=== PATIENT | female | born 1940 | race Caucasian/White ===

== ENCOUNTER 2017-09-24 23:27 | Inpatient (IN) | payer MEDICARE ==
[~2017-09-24] VITALS: Ht 157.5 cm; Wt 70.6 kg
--- NOTE | 2017-09-24 23:57 | PHYS DOC ---
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 This pain is been around the level of her ribs. She has been more short of breath. She's very constipated some laxatives last night had very small menstrual period but no vomiting. No known fever. No recent travel. She has a chronic cough which the son states hasn't really changed. No rash. No urinary complaints. She is noncompliant with her home oxygen. She does continue to smoke tobacco. She's very noncompliant and has not seen a doctor since last year which she was seen at . She has some right lower rib pain. Review of Systems Review of Systems Constitutional: Denies fever or chills Eyes: Denies change in visual acuity, redness, or eye pain HENT: Denies nasal congestion or sore throat Respiratory: POS cough and shortness of breath Cardiovascular: Right chest pain GI: POS abdominal pain, nausea, vomiting, bloody stools or diarrhea : Denies dysuria or hematuria Musculoskeletal: Denies back pain or joint pain Integument: Denies rash or skin lesions Neurologic: Denies headache, focal weakness or sensory changes All other systems were reviewed and found to be within normal limits, except as documented in this note. Current Medications Current Medications Current Medications Medications (Trade) Dose Ordered Sig/Edith Start Time Stop Time Status Last Admin Dose Admin Fentanyl Citrate (Fentanyl 2ml Vial) 50 mcg PRN Q1HR PRN 09/25/17 03:30 09/26/17 03:29 Info (Do NOT chart on this entry -- for MONITORING) 1 each PRN DAILY PRN 09/25/17 01:45 09/27/17 01:44 Iohexol (Omnipaque 300 Mg/ml) 75 ml 1X ONCE 09/25/17 01:45 09/25/17 01:46 DC 09/25/17 01:41 75 ML Morphine Sulfate 2 mg PRN Q2HR PRN 09/25/17 03:30 09/26/17 03:29 Ondansetron HCl (Zofran) 4 mg PRN Q8HRS PRN 09/25/17 03:30 09/26/17 03:29 Sodium Chloride 1,000 ml @ 1,000 mls/hr 1X ONCE 09/25/17 01:30 09/25/17 02:29 DC 09/25/17 01:25 1,000 MLS/HR Allergies Allergies Allergies Coded Allergies Type Severity Reaction Last Updated Verified rice Allergy Unknown 09/25/17 Yes Physical Exam Physical Exam Constitutional: Well developed, well nourished, no acute distress, non-toxic appearance. Heavy tobacco smell on clothing HENT: Normocephalic, atraumatic, bilateral external ears normal, oropharynx moist, no oral exudates, nose normal. Eyes: PERRLA, EOMI, conjunctiva normal, no discharge. Neck: Normal range of motion, no tenderness, supple, no stridor. Cardiovascular:Heart rate regular rhythm, no murmur Lungs & Thorax: Bilateral breath sounds clear to auscultation; coarse diminished breath sounds. Abdomen: Bowel sounds normal, soft, POS tenderness upper abdomen; no rebound or guarding, no masses, no pulsatile masses. Skin: Warm, dry, no erythema, no rash. Back: No tenderness, no CVA tenderness. Extremities: No tenderness, no cyanosis, no clubbing, ROM intact, no edema. Neurologic: Alert and oriented X 3, normal motor function, normal sensory function, no focal deficits noted. Psychologic: Affect normal, judgement normal, mood normal. Current Patient Data Vital Signs Vital Signs Date Time Temp Pulse Resp B/P (MAP) Pulse Ox O2 Delivery O2 Flow Rate FiO2 09/25/17 01:36 20 09/25/17 00:10 97.7 86 152/79 (103) 87 Room Air 97.7 Lab Values Laboratory Tests Test 09/24/17 23:55 09/25/17 00:01 White Blood Count 8.6 x10^3/uL (4.0-11.0) Red Blood Count 4.99 x10^6/uL (3.50-5.40) Hemoglobin 15.8 g/dL (12.0-15.5) H Hematocrit 47.1 % (36.0-47.0) H Mean Corpuscular Volume 94 fL (79-100) Mean Corpuscular Hemoglobin 32 pg (25-35) Mean Corpuscular Hemoglobin Concent 34 g/dL (31-37) Red Cell Distribution Width 15.0 % (11.5-14.5) H Platelet Count 354 x10^3/uL (140-400) Neutrophils (%) (Auto) 65 % (31-73) Lymphocytes (%) (Auto) 21 % (24-48) L Monocytes (%) (Auto) 9 % (0-9) Eosinophils (%) (Auto) 4 % (0-3) H Basophils (%) (Auto) 1 % (0-3) Neutrophils # (Auto) 5.6 x10^3uL (1.8-7.7) Lymphocytes # (Auto) 1.8 x10^3/uL (1.0-4.8) Monocytes # (Auto) 0.8 x10^3/uL (0.0-1.1) Eosinophils # (Auto) 0.3 x10^3/uL (0.0-0.7) Basophils # (Auto) 0.1 x10^3/uL (0.0-0.2) Sodium Level 139 mmol/L (136-145) Potassium Level 3.9 mmol/L (3.5-5.1) Chloride Level 101 mmol/L (98-107) Carbon Dioxide Level 28 mmol/L (21-32) Anion Gap 10 (6-14) Blood Urea Nitrogen 20 mg/dL (7-20) Creatinine 0.9 mg/dL (0.6-1.0) Estimated GFR (Cockcroft-Gault) 61.2 BUN/Creatinine Ratio 22 (6-20) H Glucose Level 108 mg/dL (70-99) H Calcium Level 9.4 mg/dL (8.5-10.1) Total Bilirubin 0.3 mg/dL (0.2-1.0) Aspartate Amino Transferase (AST) 19 U/L (15-37) Alanine Aminotransferase (ALT) 15 U/L (14-59) Alkaline Phosphatase 84 U/L (46-116) Creatine Kinase 91 U/L (26-192) Creatine Kinase MB (Mass) 1.2 ng/mL (0.0-3.6) Creatine Kinase MB Relative Index 1.3 % (0-4) Troponin I Quantitative < 0.017 ng/mL (0.000-0.055) Total Protein 8.9 g/dL (6.4-8.2) H Albumin 3.4 g/dL (3.4-5.0) Albumin/Globulin Ratio 0.6 (1.0-1.7) L Lipase 170 U/L (73-393) D-Dimer (Dilia) 1.23 ug/mlFEU (0.00-0.50) H Laboratory Tests 09/24/17 23:55 Laboratory Tests 09/24/17 23:55 EKG EKG EKG interpreted by myself at 0017 am: normal sinus rhythm rate 76, non specific ST changes. Radiology/Procedures Radiology/Procedures CXR interpreted by myself at 0030 am: Chronic COPD changes. Multiple granulomas noted. By basilar atelectasis but right is increased with infiltrate versus scarring versus lesion. prior chest x-ray to compare this to from 2002 with atelectasis noted RLL. [facility] [address] [place] [address] IMAGING REPORT Signed PATIENT: BARTOLO MADISON ACCOUNT: [id number] : 1940 LOCATION: ER AGE: 77 SEX: F EXAM STATUS: REG ER ORD. PHYSICIAN: PANCHO BOONE MD REASON: ELEV D DIMER/ soa; RIB PAIN; R/O PE PROCEDURE: CT ABD PELV W/ IV CONTRST ONLY CT angiogram of the chest with contrast: Reason for examination: Shortness of breath with elevated d-dimer. Bloating and abdominal pain. Helical images were obtained through the chest with intravenous administration of 75 cc Omnipaque 300 using pulmonary embolus protocol. 3-D MIPS reconstruction was performed in sagittal and coronal planes. The trachea and mainstem bronchi show no intraluminal lesions. No abnormality seen at the esophagus. There is a small hiatal hernia present. The thoracic aorta shows some mild mural plaque and calcification. No aneurysmal dilatation or dissection is evident. The heart appears to be enlarged with no pericardial effusion evident. There is no evidence of pulmonary embolus. The lung andrews show no consolidated infiltrates, pleural effusions or pneumothorax. There is suggestion however of some mild groundglass infiltrates suggesting some pulmonary edema. There are degenerative changes in the spine with a thoracic scoliosis. No acute bony abnormalities are seen. IMPRESSION: Small hiatal hernia. No evidence of pulmonary embolus. Cardiomegaly. Mild groundglass infiltrates suggesting pulmonary edema. CT abdomen and pelvis with contrast: Helical images were obtained through the abdomen and pelvis with intravenous administration of contrast. Reconstruction was performed in sagittal and coronal planes. The liver appears to be homogeneous. Gallbladder, spleen, adrenal glands and pancreas show no acute abnormalities. There is arteriosclerotic calcification in the aorta and some mural plaque. No abnormality seen at the inferior vena cava. No abnormality seen at the appendix. The colon shows no diverticulosis or diverticulitis. The small intestinal tract is not abnormally dilated and there is no evidence of bowel obstruction. The kidneys show no renal masses, renal calculi, hydronephrosis or evidence of obstructive uropathy. No abnormality seen at the bladder or vaginal cuff. There are some degenerative changes in the spine but no acute bony abnormalities are seen. IMPRESSION: Small hiatal hernia. No acute abnormality seen in the abdomen or pelvis. Exposure: One or more of the following individualized dose reduction techniques were utilized for this examination: 1. Automated exposure control 2. Adjustment of the mA and/or kV according to patient size 3. Use of iterative reconstruction technique. Electronically signed by: Ernesto Finch MD (09/25/2017 3:05 AM) [facility] DICTATED and SIGNED BY: ERNESTO FINCH MD DATE: 09/25/17252 CC: PANCHO BOONE MD; NO PCP ~ Course & Med Decision Making Course & Med Decision Making Evaluated patient when she was brought back to the room. She has multiple medical complaints and medical noncompliance. She clearly appears to be dyspneic although has COPD and continues to smoke and is noncompliant with her oxygen use at home. Son is in the room and took me aside and states that she is very stubborn and doesn't like to seek medical care. Will proceed with evaluation given her IV fentanyl for the pain. At 0120 AM: D-dimer is elevated a right lower lobe does show atelectasis versus infiltrate versus lesion. We'll CT her anterior chest and abdomen- pelvis as well, as her pain is in the area of lower chest and upper abdomen. Her liver enzymes however are normal.Explained above to the patient she is agreeable with the plan. At 0310 AM: CT results back: no PE. Patient still with pain with unclear etiology. Will admit; NPO and have re-evaluation in am. Admit to Dr Nunez. My differential for abdominal pain includes but is not limited to appendicitis; cholelithiasis or cholecystitis; renal stones; ureterolithiasis; pancreatitis; urinary tract infection; bowel obstruction; irritable bowel. I have spoken with the patient and/or caregivers. I have explained the patient' s condition, diagnosis and treatment plan based on the information available to me at this time. I have answered the patient's and/or caregiver's questions and addressed any concerns. The patient and/or caregivers have as good an understanding of the patient's diagnosis, condition and treatment plan as can be expected at this point. The patient has been stabilized within the capability of the emergency department. The patient will be transported for further care and management or will be moved to an observation or inpatient service. I have communicated with the staff or medical practitioner taking over this patient's care. I have assessed this patient clinically and believe that their condition requires admission to the hospital. After consulting the admitting physician about this case, they have asked that I admit this patient to their service as an inpatient based on the clinical presentation and my impression. Dragon Disclaimer Dragon Disclaimer This electronic medical record was generated, in whole or in part, using a voice recognition dictation system. Departure Departure Impression: Primary Impression: Abdominal pain Additional Impressions: Dyspnea Chest pain Disposition: ADMITTED INPATIENT Admitting Physician: Cristal Nunez Condition: STABLE Referrals: NO PCP (PCP) Problem Qualifiers Primary Impression: Abdominal pain Abdominal location: right upper quadrant Qualified Codes: R10.11 - Right upper quadrant pain Additional Impressions: Dyspnea Dyspnea type: shortness of breath Qualified Codes: R06.02 - Shortness of breath Chest pain Chest pain type: chest pain on breathing Qualified Codes: R07.1 - Chest pain on breathing PANCHO BOONE MD Sep 24, 2017 23:57
[2017-09-25] MEDS ORDERED: ONDANSETRON PF 4 MG/2 ML VIAL. IV ONE
[2017-09-25] MEDS ORDERED: IV NORMAL SALINE 1000ML BAG 1,000 ML IV SCH
[2017-09-25 00:10] LABS: BASO # 0.1 x10^3/uL (0.0-0.2); BASO % 1 % (0-3); EOS % 4 % (0-3); HEMATOCRIT 47.1 % (36.0-47.0); HEMOGLOBIN 15.8 g/dL (12.0-15.5); LYMPH # 1.8 x10^3/uL (1.0-4.8); LYMPH % 21 % (24-48); MEAN CORPUSCULAR HEMOGLOBIN 32 pg (25-35); MEAN CORPUSCULAR HGB CONC 34 g/dL (31-37); MEAN CORPUSCULAR VOLUME 94 fL (79-100); MONO % 9 % (0-9); NEUT % 65 % (31-73); PLATELET COUNT 354 x10^3/uL (140-400); RED BLOOD COUNT 4.99 x10^6/uL (3.50-5.40); WHITE BLOOD COUNT 8.6 x10^3/uL (4.0-11.0)
[2017-09-25 00:21] LABS: CALCIUM 9.4 mg/dL (8.5-10.1); CREATININE 0.9 mg/dL (0.6-1.0); GFR 61.2; POTASSIUM 3.9 mmol/L (3.5-5.1)
[2017-09-25 00:27] LABS: ALBUMIN 3.4 g/dL (3.4-5.0); ALBUMIN/GLOBULIN RATIO 0.6 (1.0-1.7); TOTAL BILIRUBIN 0.3 mg/dL (0.2-1.0); TOTAL PROTEIN 8.9 g/dL (6.4-8.2)
[2017-09-25 00:35] LABS: CKMB MASS 1.2 ng/mL (0.0-3.6)
[2017-09-25] MEDS ORDERED: IV NORMAL SALINE 1000ML BAG 1,000 ML IV ONE (01:30)
[2017-09-25] MEDS ORDERED: fentaNYL PF VIAL 100 MCG/2 ML VIAL IV ONE ×2 (01:30)
[2017-09-25] MEDS ORDERED: IOHEXOL 300 MG/ML 100ML VIAL. IV ONE (01:45)
[2017-09-25] MEDS ORDERED: CONTRAST GIVEN MC PRN (01:45)
--- NOTE | 2017-09-25 03:09 | RAD ---
CT angiogram of the chest with contrast: Reason for examination: Shortness of breath with elevated d-dimer. Bloating and abdominal pain. Helical images were obtained through the chest with intravenous administration of 75 cc Omnipaque 300 using pulmonary embolus protocol. 3-D MIPS reconstruction was performed in sagittal and coronal planes. The trachea and mainstem bronchi show no intraluminal lesions. No abnormality seen at the esophagus. There is a small hiatal hernia present. The thoracic aorta shows some mild mural plaque and calcification. No aneurysmal dilatation or dissection is evident. The heart appears to be enlarged with no pericardial effusion evident. There is no evidence of pulmonary embolus. The lung andrews show no consolidated infiltrates, pleural effusions or pneumothorax. There is suggestion however of some mild groundglass infiltrates suggesting some pulmonary edema. There are degenerative changes in the spine with a thoracic scoliosis. No acute bony abnormalities are seen. IMPRESSION: Small hiatal hernia. No evidence of pulmonary embolus. Cardiomegaly. Mild groundglass infiltrates suggesting pulmonary edema. CT abdomen and pelvis with contrast: Helical images were obtained through the abdomen and pelvis with intravenous administration of contrast. Reconstruction was performed in sagittal and coronal planes. The liver appears to be homogeneous. Gallbladder, spleen, adrenal glands and pancreas show no acute abnormalities. There is arteriosclerotic calcification in the aorta and some mural plaque. No abnormality seen at the inferior vena cava. No abnormality seen at the appendix. The colon shows no diverticulosis or diverticulitis. The small intestinal tract is not abnormally dilated and there is no evidence of bowel obstruction. The kidneys show no renal masses, renal calculi, hydronephrosis or evidence of obstructive uropathy. No abnormality seen at the bladder or vaginal cuff. There are some degenerative changes in the spine but no acute bony abnormalities are seen. IMPRESSION: Small hiatal hernia. No acute abnormality seen in the abdomen or pelvis. Exposure: One or more of the following individualized dose reduction techniques were utilized for this examination: 1. Automated exposure control 2. Adjustment of the mA and/or kV according to patient size 3. Use of iterative reconstruction technique. Electronically signed by: Tiffanie Nielson MD (09/25/2017 3:05 AM) [facility]
[2017-09-25] MEDS ORDERED: ONDANSETRON PF 4 MG/2 ML VIAL. IV PRN (03:30)
[2017-09-25] MEDS ORDERED: MORPHINE SULFATE 4 MG/ML DISP.SYRIN. IV PRN (03:30)
[2017-09-25] MEDS: fentaNYL PF VIAL 100 MCG/2 ML VIAL IV PRN ×2 (05:35→21:02)
--- NOTE | 2017-09-25 06:19 | EKG ---
[facility] [address] [place] [address] Test Date: 2017-09-25 Test Time: 00:17:32 Pat Name: BARTOLO MADSION Department: Room: 574 1 Gender: F Structural [employer]: : 1940 Requested By: PANCHO BOONE Order Number: [id number] Reading MD: Ambrocio Ernst Measurements Intervals Narvon Rate: 76 P: RI: QRS: 10 QRSD: 110 T: 118 QT: 384 QTc: 436 Interpretive Statements SINUS RHYTHM BASELINE ARTIFACT T ABNORMALITY IN ANTERIOR LEADS INFEROLATERAL LEADS ABNORMAL ECG Electronically Signed On 10-07-2017 14:00:17 CAMP ATTENDANT by Ambrocio Ernst
[2017-09-25] MEDS ORDERED: LEVO25TA4 PO (06:22)
[2017-09-25 07:00] VITALS: BP 121/58
--- NOTE | 2017-09-25 07:33 | RAD ---
EXAM: Chest one view. HISTORY: Chest pain with deep breathing. COMPARISON: 08/20/2006. FINDINGS: A frontal view of the chest is obtained. There are limitations from rotation to the left. Opacities in the right greater than left base may represent scarring or atelectasis. Hyperinflation is consistent with chronic obstructive pulmonary disease. There is no pneumothorax or pleural effusion. The heart is moderately enlarged. There are atherosclerotic calcifications of the aorta. There is a mild broad thoracic dextroscoliosis. IMPRESSION: 1. Chronic obstructive pulmonary disease with bibasilar atelectasis or scarring. 2. Moderate cardiomegaly.
[2017-09-25 11:00] VITALS: BP 123/59
[2017-09-25 15:00] VITALS: BP 113/55
--- NOTE | 2017-09-25 17:04 | PDOC1 ---
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 This pain is been around the level of her ribs. She has been more short of breath. She's very constipated some laxatives last night had very small menstrual period but no vomiting. No known fever. No recent travel. She has a chronic cough which the son states hasn't really changed. No rash. No urinary complaints. She is noncompliant with her home oxygen. She does continue to smoke tobacco. She's very noncompliant and has not seen a doctor since last year which she was seen at . She has some right lower rib pain. Past Medical History Past Medical History COPD Pulmonary: Bronchitis, COPD Psych: Anxiety Family History Family History DENIES FHX COLON CANCER Social History Smoke: 2 packs per day ALCOHOL: none Drugs: None Current Problem List Problem List Problems Medical Problems: (1) Abdominal pain Status: Acute (2) Chest pain Status: Acute (3) Dyspnea Status: Acute Problems: Current Medications Current Medications Current Medications Sodium Chloride 1,000 ml @ 1,000 mls/hr Q1H IV ; Start 09/25/17 at 00:00; Stop 09/25/17 at 00:59; Status DC Fentanyl Citrate (Fentanyl 2ml Vial) 25 mcg 1X ONCE IV Last administered on 00:32; Start 09/25/17 at 00:00; Stop 09/25/17 at 00:13; Status DC Ondansetron HCl (Zofran) 4 mg 1X ONCE IV ; Start 09/25/17 at 00:00; Stop at 00:13; Status DC Sodium Chloride 1,000 ml @ 1,000 mls/hr 1X ONCE IV Last administered on 09/25 01:25; Start 09/25/17 at 01:30; Stop 09/25/17 at 02:29; Status DC Fentanyl Citrate (Fentanyl 2ml Vial) 25 mcg 1X ONCE IV Last administered on 01:36; Start 09/25/17 at 01:30; Stop 09/25/17 at 01:31; Status DC Iohexol (Omnipaque 300 Mg/ml) 75 ml 1X ONCE IV Last administered on 01:41; Start 09/25/17 at 01:45; Stop 09/25/17 at 01:46; Status DC Info (Do NOT chart on this entry -- for MONITORING) 1 each PRN DAILY PRN MC SEE COMMENTS; Start 09/25/17 at 01:45; Stop 09/27/17 at 01:44 Ondansetron HCl (Zofran) 4 mg PRN Q8HRS PRN IV NAUSEA/VOMITING; Start at 03:30; Stop 09/26/17 at 03:29 Morphine Sulfate 2 mg PRN Q2HR PRN IV PAIN; Start 09/25/17 at 03:30; Stop at 03:29 Fentanyl Citrate (Fentanyl 2ml Vial) 50 mcg PRN Q1HR PRN IV PAIN Last administered on 09/25/17 05:35; Start 09/25/17 at 03:30; Stop 09/26/17 at 03 :29 Active Scripts Active Reported Levothyroxine Sodium 25 Mcg Tablet 25 Mcg PO DAILY06 Allergies Allergies: Coded Allergies: rice (Verified Allergy, Unknown, 09/25/17) PT REPORTS GOING TO THE ER FOR RICE POISIONING IN THE PAST Physical Exam Physical Exam Review of Systems Review of Systems Constitutional: Denies fever or chills Eyes: Denies change in visual acuity, redness, or eye pain HENT: Denies nasal congestion or sore throat Respiratory: POS cough and shortness of breath Cardiovascular: Right chest pain GI: POS abdominal pain, nausea, vomiting, bloody stools or diarrhea : Denies dysuria or hematuria Musculoskeletal: Denies back pain or joint pain Integument: Denies rash or skin lesions Neurologic: Denies headache, focal weakness or sensory changes All other systems were reviewed and found to be within normal limits, except as documented in this note. Current Medications Current Medications Current Medications Medications (Trade) Dose Ordered Sig/Edith Start Time Stop Time Status Last Admin Dose Admin Fentanyl Citrate (Fentanyl 2ml Vial) 50 mcg PRN Q1HR PRN 09/25/17 03:30 09/26/17 03:29 Info (Do NOT chart on this entry -- for MONITORING) 1 each PRN DAILY PRN 09/25/17 01:45 09/27/17 01:44 Iohexol (Omnipaque 300 Mg/ml) 75 ml 1X ONCE 09/25/17 01:45 09/25/17 01:46 DC 09/25/17 01:41 75 ML Morphine Sulfate 2 mg PRN Q2HR PRN 09/25/17 03:30 09/26/17 03:29 Ondansetron HCl (Zofran) 4 mg PRN Q8HRS PRN 09/25/17 03:30 09/26/17 03:29 Sodium Chloride 1,000 ml @ 1,000 mls/hr 1X ONCE 09/25/17 01:30 09/25/17 02:29 DC 09/25/17 01:25 1,000 MLS/HR Allergies Allergies Allergies Coded Allergies Type Severity Reaction Last Updated Verified rice Allergy Unknown 09/25/17 Yes Physical Exam Physical Exam Constitutional: Well developed, well nourished, no acute distress, non-toxic appearance. Heavy tobacco smell on clothing HENT: Normocephalic, atraumatic, bilateral external ears normal, oropharynx moist, no oral exudates, nose normal. Eyes: PERRLA, EOMI, conjunctiva normal, no discharge. Neck: Normal range of motion, no tenderness, supple, no stridor. Cardiovascular:Heart rate regular rhythm, no murmur Lungs & Thorax: Bilateral breath sounds clear to auscultation; coarse diminished breath sounds. Abdomen: Bowel sounds normal, soft, POS tenderness upper abdomen; no rebound or guarding, no masses, no pulsatile masses. Skin: Warm, dry, no erythema, no rash. Back: No tenderness, no CVA tenderness. Extremities: No tenderness, no cyanosis, no clubbing, ROM intact, no edema. Neurologic: Alert and oriented X 3, normal motor function, normal sensory function, no focal deficits noted. Psychologic: Affect normal, judgement normal, mood normal. Current Patient Data Vital Signs Vital Signs Date Time Temp Pulse Resp B/P (MAP) Pulse Ox O2 Delivery O2 Flow Rate FiO2 11/22/17 01:36 20 09/25/17 00:10 97.7 86 152/79 (103) 87 Room Air 97.7 Lab Values General: Alert, Oriented X3, Cooperative, mild distress HEENT: Atraumatic, EOMI Lungs: Other (FEW WHEEZES AND RHONCHI) Heart: S1S2 Vitals Vitals Vital Signs Date Time Temp Pulse Resp B/P (MAP) Pulse Ox O2 Delivery O2 Flow Rate FiO2 09/25/17 15:00 97.8 78 18 113/55 (74) 92 Room Air 97.[address] angiogram of the chest with contrast: Reason for examination: Shortness of breath with elevated d-dimer. Bloating and abdominal pain. Helical images were obtained through the chest with intravenous administration of 75 cc Omnipaque 300 using pulmonary embolus protocol. 3-D MIPS reconstruction was performed in sagittal and coronal planes. The trachea and mainstem bronchi show no intraluminal lesions. No abnormality seen at the esophagus. There is a small hiatal hernia present. The thoracic aorta shows some mild mural plaque and calcification. No aneurysmal dilatation or dissection is evident. The heart appears to be enlarged with no pericardial effusion evident. There is no evidence of pulmonary embolus. The lung andrews show no consolidated infiltrates, pleural effusions or pneumothorax. There is suggestion however of some mild groundglass infiltrates suggesting some pulmonary edema. There are degenerative changes in the spine with a thoracic scoliosis. No acute bony abnormalities are seen. IMPRESSION: Small hiatal hernia. No evidence of pulmonary embolus. Cardiomegaly. Mild groundglass infiltrates suggesting pulmonary edema. CT abdomen and pelvis with contrast: Helical images were obtained through the abdomen and pelvis with intravenous administration of contrast. Reconstruction was performed in sagittal and coronal planes. The liver appears to be homogeneous. Gallbladder, spleen, adrenal glands and pancreas show no acute abnormalities. There is arteriosclerotic calcification in the aorta and some mural plaque. No abnormality seen at the inferior vena cava. No abnormality seen at the appendix. The colon shows no diverticulosis or diverticulitis. The small intestinal tract is not abnormally dilated and there is no evidence of bowel obstruction. The kidneys show no renal masses, renal calculi, hydronephrosis or evidence of obstructive uropathy. No abnormality seen at the bladder or vaginal cuff. There are some degenerative changes in the spine but no acute bony abnormalities are seen. IMPRESSION: Small hiatal hernia. No acute abnormality seen in the abdomen or pelvis. CT angiogram of the chest with contrast: Reason for examination: Shortness of breath with elevated d-dimer. Bloating and abdominal pain. Helical images were obtained through the chest with intravenous administration of 75 cc Omnipaque 300 using pulmonary embolus protocol. 3-D MIPS reconstruction was performed in sagittal and coronal planes. The trachea and mainstem bronchi show no intraluminal lesions. No abnormality seen at the esophagus. There is a small hiatal hernia present. The thoracic aorta shows some mild mural plaque and calcification. No aneurysmal dilatation or dissection is evident. The heart appears to be enlarged with no pericardial effusion evident. There is no evidence of pulmonary embolus. The lung andrews show no consolidated infiltrates, pleural effusions or pneumothorax. There is suggestion however of some mild groundglass infiltrates suggesting some pulmonary edema. There are degenerative changes in the spine with a thoracic scoliosis. No acute bony abnormalities are seen. IMPRESSION: Small hiatal hernia. No evidence of pulmonary embolus. Cardiomegaly. Mild groundglass infiltrates suggesting pulmonary edema. CT abdomen and pelvis with contrast: Helical images were obtained through the abdomen and pelvis with intravenous administration of contrast. Reconstruction was performed in sagittal and coronal planes. The liver appears to be homogeneous. Gallbladder, spleen, adrenal glands and pancreas show no acute abnormalities. There is arteriosclerotic calcification in the aorta and some mural plaque. No abnormality seen at the inferior vena cava. No abnormality seen at the appendix. The colon shows no diverticulosis or diverticulitis. The small intestinal tract is not abnormally dilated and there is no evidence of bowel obstruction. The kidneys show no renal masses, renal calculi, hydronephrosis or evidence of obstructive uropathy. No abnormality seen at the bladder or vaginal cuff. There are some degenerative changes in the spine but no acute bony abnormalities are seen. IMPRESSION: Small hiatal hernia. No acute abnormality seen in the abdomen or pelvis. Exposure: One or more of the following individualized dose reduction techniques were utilized for this examination: 1. Automated exposure control 2. Adjustment of the mA and/or kV according to patient size 3. Use of iterative reconstruction technique. Electronically signed by: Tiffanie Nielson MD (09/25/2017 3:05 AM) [facility] Laboratory Tests Test 09/24/17 23:55 09/25/17 00:01 09/25/17 09:15 09/25/17 15:10 White Blood Count 8.6 x10^3/uL (4.0-11.0) Red Blood Count 4.99 x10^6/uL (3.50-5.40) Hemoglobin 15.8 g/dL (12.0-15.5) Hematocrit 47.1 % (36.0-47.0) Mean Corpuscular Volume 94 fL (79-100) Mean Corpuscular Hemoglobin 32 pg (25-35) Mean Corpuscular Hemoglobin Concent 34 g/dL (31-37) Red Cell Distribution Width 15.0 % (11.5-14.5) Platelet Count 354 x10^3/uL (140-400) Neutrophils (%) (Auto) 65 % (31-73) Lymphocytes (%) (Auto) 21 % (24-48) Monocytes (%) (Auto) 9 % (0-9) Eosinophils (%) (Auto) 4 % (0-3) Basophils (%) (Auto) 1 % (0-3) Neutrophils # (Auto) 5.6 x10^3uL (1.8-7.7) Lymphocytes # (Auto) 1.8 x10^3/uL (1.0-4.8) Monocytes # (Auto) 0.8 x10^3/uL (0.0-1.1) Eosinophils # (Auto) 0.3 x10^3/uL (0.0-0.7) Basophils # (Auto) 0.1 x10^3/uL (0.0-0.2) Sodium Level 139 mmol/L (136-145) Potassium Level 3.9 mmol/L (3.5-5.1) Chloride Level 101 mmol/L (98-107) Carbon Dioxide Level 28 mmol/L (21-32) Anion Gap 10 (6-14) Blood Urea Nitrogen 20 mg/dL (7-20) Creatinine 0.9 mg/dL (0.6-1.0) Estimated GFR (Cockcroft-Gault) 61.2 BUN/Creatinine Ratio 22 (6-20) Glucose Level 108 mg/dL (70-99) Calcium Level 9.4 mg/dL (8.5-10.1) Total Bilirubin 0.3 mg/dL (0.2-1.0) Aspartate Amino Transf (AST/SGOT) 19 U/L (15-37) Alanine Aminotransferase (ALT/SGPT) 15 U/L (14-59) Alkaline Phosphatase 84 U/L (46-116) Creatine Kinase 91 U/L (26-192) Creatine Kinase MB (Mass) 1.2 ng/mL (0.0-3.6) Creatine Kinase MB Relative Index 1.3 % (0-4) Troponin I Quantitative < 0.017 ng/mL (0.000-0.055) < 0.017 ng/mL (0.000-0.055) < 0.017 ng/mL (0.000-0.055) Total Protein 8.9 g/dL (6.4-8.2) Albumin 3.4 g/dL (3.4-5.0) Albumin/Globulin Ratio 0.6 (1.0-1.7) Lipase 170 U/L (73-393) D-Dimer (Dilia) 1.23 ug/mlFEU (0.00-0.50) Laboratory Tests Test 09/24/17 23:55 09/25/17 00:01 09/25/17 09:15 09/25/17 15:10 White Blood Count 8.6 x10^3/uL (4.0-11.0) Red Blood Count 4.99 x10^6/uL (3.50-5.40) Hemoglobin 15.8 g/dL (12.0-15.5) Hematocrit 47.1 % (36.0-47.0) Mean Corpuscular Volume 94 fL (79-100) Mean Corpuscular Hemoglobin 32 pg (25-35) Mean Corpuscular Hemoglobin Concent 34 g/dL (31-37) Red Cell Distribution Width 15.0 % (11.5-14.5) Platelet Count 354 x10^3/uL (140-400) Neutrophils (%) (Auto) 65 % (31-73) Lymphocytes (%) (Auto) 21 % (24-48) Monocytes (%) (Auto) 9 % (0-9) Eosinophils (%) (Auto) 4 % (0-3) Basophils (%) (Auto) 1 % (0-3) Neutrophils # (Auto) 5.6 x10^3uL (1.8-7.7) Lymphocytes # (Auto) 1.8 x10^3/uL (1.0-4.8) Monocytes # (Auto) 0.8 x10^3/uL (0.0-1.1) Eosinophils # (Auto) 0.3 x10^3/uL (0.0-0.7) Basophils # (Auto) 0.1 x10^3/uL (0.0-0.2) Sodium Level 139 mmol/L (136-145) Potassium Level 3.9 mmol/L (3.5-5.1) Chloride Level 101 mmol/L (98-107) Carbon Dioxide Level 28 mmol/L (21-32) Anion Gap 10 (6-14) Blood Urea Nitrogen 20 mg/dL (7-20) Creatinine 0.9 mg/dL (0.6-1.0) Estimated GFR (Cockcroft-Gault) 61.2 BUN/Creatinine Ratio 22 (6-20) Glucose Level 108 mg/dL (70-99) Calcium Level 9.4 mg/dL (8.5-10.1) Total Bilirubin 0.3 mg/dL (0.2-1.0) Aspartate Amino Transf (AST/SGOT) 19 U/L (15-37) Alanine Aminotransferase (ALT/SGPT) 15 U/L (14-59) Alkaline Phosphatase 84 U/L (46-116) Creatine Kinase 91 U/L (26-192) Creatine Kinase MB (Mass) 1.2 ng/mL (0.0-3.6) Creatine Kinase MB Relative Index 1.3 % (0-4) Troponin I Quantitative < 0.017 ng/mL (0.000-0.055) < 0.017 ng/mL (0.000-0.055) < 0.017 ng/mL (0.000-0.055) Total Protein 8.9 g/dL (6.4-8.2) Albumin 3.4 g/dL (3.4-5.0) Albumin/Globulin Ratio 0.6 (1.0-1.7) Lipase 170 U/L (73-393) D-Dimer (Dilia) 1.23 ug/mlFEU (0.00-0.50) VTE Prophylaxis Ordered VTE Prophylaxis Devices: Yes VTE Pharmacological Prophylaxi: Yes Assessment/Plan Assessment/Plan 1. abdominal pain, rec GI CONSULT 2. COPD EXAC 3. BACK PAIN 4. TOBACCO ABUSE PLAN GI CONSULT, HAS NEVER HAD COLONOSCOPY PROTONIX 40 MG PO DAILY PEPSID 20MG IV BID NIGEL DOWD MD Sep 25, 2017 17:04
[2017-09-25] MEDS ORDERED: MAG HYDROX/ALUMINUM HYD/SIMETH 30 ML ORAL.SUSP PO PRN (17:30)
[2017-09-25] MEDS: ENOXAPARIN 40 MG/0.4 ML SYRINGE. SQ SCH (17:30)
[2017-09-25] MEDS: PANTOPRAZOLE 40 MG TABLET.DR. PO SCH (18:02)
[2017-09-25 19:00] VITALS: BP 112/58
[2017-09-25] MEDS: IPRATRPIUM/ALBUTEROL 0.5/2.5MG 3 ML NEBU. NEB SCH ×2 (20:00→21:59)
[2017-09-25] MEDS: FAMOTIDINE 20 MG/2 ML VIAL IVP SCH (21:03)
[2017-09-25 22:59] VITALS: BP 121/65
[2017-09-26] MEDS: fentaNYL PF VIAL 100 MCG/2 ML VIAL IV PRN (02:46)
[2017-09-26 03:00] VITALS: BP 116/60
[2017-09-26 04:37] LABS: BASO # 0.1 x10^3/uL (0.0-0.2); BASO % 1 % (0-3); EOS % 2 % (0-3); HEMATOCRIT 44.4 % (36.0-47.0); HEMOGLOBIN 14.8 g/dL (12.0-15.5); LYMPH # 1.5 x10^3/uL (1.0-4.8); LYMPH % 20 % (24-48); MEAN CORPUSCULAR HEMOGLOBIN 31 pg (25-35); MEAN CORPUSCULAR HGB CONC 33 g/dL (31-37); MEAN CORPUSCULAR VOLUME 94 fL (79-100); MONO % 11 % (0-9); NEUT % 66 % (31-73); PLATELET COUNT 333 x10^3/uL (140-400); RED BLOOD COUNT 4.71 x10^6/uL (3.50-5.40); RED CELL DISTRIBUTION WIDTH 14.7 % (11.5-14.5); WHITE BLOOD COUNT 7.5 x10^3/uL (4.0-11.0)
[2017-09-26] MEDS ORDERED: fentaNYL PF VIAL 100 MCG/2 ML VIAL IV PRN (07:15)
[2017-09-26 07:22] VITALS: BP 128/59
[2017-09-26] MEDS: PANTOPRAZOLE 40 MG TABLET.DR. PO SCH (07:30)
[2017-09-26] MEDS: FAMOTIDINE 20 MG/2 ML VIAL IVP SCH (07:58)
[2017-09-26] MEDS: IPRATRPIUM/ALBUTEROL 0.5/2.5MG 3 ML NEBU. NEB SCH ×5 (08:00→20:00)
[2017-09-26] MEDS ORDERED: FUROSEMIDE 40 MG/4 ML VIAL. IVP SCH (09:00)
[2017-09-26] MEDS ORDERED: IBUPROFEN 400 MG TABLET. PO PRN ×2 (09:45→10:30)
--- NOTE | 2017-09-26 09:50 | PDOC ---
PROGRESS NOTES Chief Complaint Chief Complaint Abd pain ASSESSMENT AND PLAN: 1. RUQ pain : no CT correlate. GI consult 2. Bronchitis: cont levaquin, nebs, suppl O2 PRN. poss viral with pleuritic pain causing diaphragmatic pain. 3. COPD: not on inh at home, but home O2 4. Tobaccoism; cessation strongly encouraged. nicotine patch 5. Rib/diaphragmatic pain: viral pleuritis vs MSK 2/2 heavy lifting in past couple of days getting ready for . ibuprofen ATC, norco PRN 6. Constipation: no BM x1 week. MO enema, bowel regimen History of Present Illness History of Present Illness denies respir issues. "don't want albuterol in my lungs" Vitals Vitals Vital Signs Date Time Temp Pulse Resp B/P (MAP) Pulse Ox O2 Delivery O2 Flow Rate FiO2 09/26/17 07:22 97.7 61 20 128/59 (82) 95 Room Air 97.7 Physical Exam General: Alert, Oriented X3, Cooperative, No acute distress Heart: Regular rate Lungs: Clear Abdomen: Other (TTP upper quadrants) Extremities: No clubbing, No edema Skin: No rashes Labs LABS Laboratory Tests Test 09/25/17 15:10 09/26/17 04:20 Troponin I Quantitative < 0.017 ng/mL (0.000-0.055) White Blood Count 7.5 x10^3/uL (4.0-11.0) Red Blood Count 4.71 x10^6/uL (3.50-5.40) Hemoglobin 14.8 g/dL (12.0-15.5) Hematocrit 44.4 % (36.0-47.0) Mean Corpuscular Volume 94 fL (79-100) Mean Corpuscular Hemoglobin 31 pg (25-35) Mean Corpuscular Hemoglobin Concent 33 g/dL (31-37) Red Cell Distribution Width 14.7 % (11.5-14.5) Platelet Count 333 x10^3/uL (140-400) Neutrophils (%) (Auto) 66 % (31-73) Lymphocytes (%) (Auto) 20 % (24-48) Monocytes (%) (Auto) 11 % (0-9) Eosinophils (%) (Auto) 2 % (0-3) Basophils (%) (Auto) 1 % (0-3) Neutrophils # (Auto) 4.9 x10^3uL (1.8-7.7) Lymphocytes # (Auto) 1.5 x10^3/uL (1.0-4.8) Monocytes # (Auto) 0.8 x10^3/uL (0.0-1.1) Eosinophils # (Auto) 0.2 x10^3/uL (0.0-0.7) Basophils # (Auto) 0.1 x10^3/uL (0.0-0.2) JUAN ROSARIO MD Sep 26, 2017 09:50
[2017-09-26] MEDS: LEVOTHYROXINE 25 MCG TABLET. PO SCH (10:30)
[2017-09-26] MEDS ORDERED: MINERAL OIL 133 ML ENEMA. PR ONE (11:00)
[2017-09-26] MEDS: POLYETHYLENE GLYCOL 3350 17 GM PACKET. PO SCH ×2 (11:01→20:34)
[2017-09-26] MEDS: HYDROcodone/APAP 5/325MG 1 TAB TABLET PO PRN ×2 (11:01→19:29)
[2017-09-26 11:10] VITALS: BP 108/59
--- NOTE | 2017-09-26 15:17 | PDOC2 ---
GI CONSULT Date Date/Time DATE: 09/26/17 TIME: 15:08 Providers Attending Physician Cristal Nunez MD Referring Physician Consulting Physician Dr. Bonilla History of Present Illness HPI 77 yo WF with lower chest and rib pain- recent coughing. Long history of smoking and morning smokers cough. Rare heartubnr, Denies abd pain separate from present "rib" pain. Work up so far - CT chest and abd are negative except for small HH. She has BM every 2-3 days without laxatives. No bleeding. Had colonoscopy with polyp many years ago. No follow up colonoscopy and no recent PCP as well. Denies chronic medical issues other than COPD. History Past Medical History COPD hx of colon polyp Past Surgical History: Hysterectomy Social/Personal History smoker Review of Systems Cardiovascular: Yes chest pain (ribs- "pleurisy") Gastrointestinal: Yes: constipation, other (rare heartburn) Allergies Allergies Allergies Coded Allergies Type Severity Reaction Last Updated Verified rice Allergy Unknown 09/25/17 Yes Medications Medications Current Medications Sodium Chloride 1,000 ml @ 1,000 mls/hr Q1H IV ; Start 09/25/17 at 00:00; Stop 09/25/17 at 00:59; Status DC Fentanyl Citrate (Fentanyl 2ml Vial) 25 mcg 1X ONCE IV Last administered on 00:32; Start 09/25/17 at 00:00; Stop 09/25/17 at 00:13; Status DC Ondansetron HCl (Zofran) 4 mg 1X ONCE IV ; Start 09/25/17 at 00:00; Stop at 00:13; Status DC Sodium Chloride 1,000 ml @ 1,000 mls/hr 1X ONCE IV Last administered on 09/25 01:25; Start 09/25/17 at 01:30; Stop 09/25/17 at 02:29; Status DC Fentanyl Citrate (Fentanyl 2ml Vial) 25 mcg 1X ONCE IV Last administered on 01:36; Start 09/25/17 at 01:30; Stop 09/25/17 at 01:31; Status DC Iohexol (Omnipaque 300 Mg/ml) 75 ml 1X ONCE IV Last administered on 01:41; Start 09/25/17 at 01:45; Stop 09/25/17 at 01:46; Status DC Info (Do NOT chart on this entry -- for MONITORING) 1 each PRN DAILY PRN MC SEE COMMENTS; Start 09/25/17 at 01:45; Stop 09/27/17 at 01:44 Ondansetron HCl (Zofran) 4 mg PRN Q8HRS PRN IV NAUSEA/VOMITING; Start at 03:30; Stop 09/26/17 at 03:29; Status DC Morphine Sulfate 2 mg PRN Q2HR PRN IV PAIN Last administered on 09/25/17 18: 03; Start 09/25/17 at 03:30; Stop 09/26/17 at 03:29; Status DC Fentanyl Citrate (Fentanyl 2ml Vial) 50 mcg PRN Q1HR PRN IV PAIN Last administered on 09/26/17 02:46; Start 09/25/17 at 03:30; Stop 09/26/17 at 03 :29; Status DC Enoxaparin Sodium (Lovenox 40mg Syringe) 40 mg DAILY16 SQ ; Start 09/25/17 at 17:30 Pantoprazole Sodium (Protonix) 40 mg DAILYAC PO Last administered on 18:02; Start 09/25/17 at 17:30 Al Hydroxide/Mg Hydroxide (Mylanta Plus Xs) 30 ml PRN Q2HR PRN PO HEARTBURN / GAS; Start 09/25/17 at 17:30 Furosemide (Lasix) 40 mg DAILY IVP Last administered on 09/26/17 07:58; Start 09/26/17 at 09:00; Stop 09/26/17 at 09:48; Status DC Famotidine (Pepcid Vial) 20 mg BID IVP Last administered on 09/26/17 07:58; Start 09/25/17 at 21:00; Stop 09/26/17 at 09:48; Status DC Levofloxacin/ Dextrose 100 ml @ 100 mls/hr Q24H IV Last administered on 18:30; Start 09/25/17 at 18:00 Albuterol/ Ipratropium (Duoneb) 3 ml RTQID NEB ; Start 09/25/17 at 20:00 Fentanyl Citrate (Fentanyl 2ml Vial) 50 mcg PRN Q2HR PRN IV PAIN Last administered on 09/26/17 07:57; Start 09/26/17 at 07:15; Stop 09/26/17 at 09 :48; Status DC Levothyroxine Sodium (Synthroid) 25 mcg DAILY06 PO ; Start 09/26/17 at 10:30 Ibuprofen (Motrin) 400 mg PRN Q6HRS PRN PO INFLAMMATION; Start 09/26/17 at 09: 45; Stop 09/26/17 at 10:18; Status DC Ibuprofen (Motrin) 400 mg PRN Q6HRS PRN PO PAIN/INFLAMMATION; Start 09/26/17 at 10:30 Mineral Oil (Fleet Mineral Oil) 133 ml 1X ONCE TN Last administered on 11:02; Start 09/26/17 at 11:00; Stop 09/26/17 at 11:01; Status DC Polyethylene Glycol (miraLAX PACKET) 17 gm BID PO Last administered on 11:01; Start 09/26/17 at 10:30 Acetaminophen/ Hydrocodone Bitart (Lortab 5/325) 1 tab PRN Q8HRS PRN PO PAIN Last administered on 09/26/17 11:01; Start 09/26/17 at 10:15 Active Scripts Active Reported Levothyroxine Sodium 25 Mcg Tablet 25 Mcg PO DAILY06 Physical Exam Physical Exam VSS neck - supple chest- rhonchi cor- RRR- mildly tiender along ribs abd -soft NON tender, no masses, good bowel sounds extrem no CCE neuro- alert non focal Labs Labs Laboratory Tests Test 09/25/17 15:10 09/26/17 04:20 Troponin I Quantitative < 0.017 ng/mL (0.000-0.055) White Blood Count 7.5 x10^3/uL (4.0-11.0) Red Blood Count 4.71 x10^6/uL (3.50-5.40) Hemoglobin 14.8 g/dL (12.0-15.5) Hematocrit 44.4 % (36.0-47.0) Mean Corpuscular Volume 94 fL (79-100) Mean Corpuscular Hemoglobin 31 pg (25-35) Mean Corpuscular Hemoglobin Concent 33 g/dL (31-37) Red Cell Distribution Width 14.7 % (11.5-14.5) Platelet Count 333 x10^3/uL (140-400) Neutrophils (%) (Auto) 66 % (31-73) Lymphocytes (%) (Auto) 20 % (24-48) Monocytes (%) (Auto) 11 % (0-9) Eosinophils (%) (Auto) 2 % (0-3) Basophils (%) (Auto) 1 % (0-3) Neutrophils # (Auto) 4.9 x10^3uL (1.8-7.7) Lymphocytes # (Auto) 1.5 x10^3/uL (1.0-4.8) Monocytes # (Auto) 0.8 x10^3/uL (0.0-1.1) Eosinophils # (Auto) 0.2 x10^3/uL (0.0-0.7) Basophils # (Auto) 0.1 x10^3/uL (0.0-0.2) Assessment Assessment Lower chest and rib pain- ? 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 RAre heartburn but denies abd pain, peptic symptoms, n/v and only has mild constipation without bleeding. Discussed issues- including overdue for colonoscopy. I reviewed EGD and colonoscopy options for her tomorrow She wanted to go ahead and eat and NOT have EGD or colonoscopy at this time, but may consider later as outpt. Problems: Plan Plan Protonix as trial prn MOM or Miralax will contact her later as outpt about colonoscopy Thank you for allowing us to participate in the care of your patient. We will continue to follow the patient with you and provide an appropriate recommendation as it becomes available. JIM BONILLA MD Sep 26, 2017 15:17
[2017-09-26 15:23] VITALS: BP 111/60
[2017-09-26] MEDS: ENOXAPARIN 40 MG/0.4 ML SYRINGE. SQ SCH (16:00)
[2017-09-26 19:00] VITALS: BP 106/57
[2017-09-26 23:00] VITALS: BP 95/60
[2017-09-27 03:00] VITALS: BP 122/67
[2017-09-27] MEDS: LEVOTHYROXINE 25 MCG TABLET. PO SCH (05:40)
[2017-09-27] MEDS: HYDROcodone/APAP 5/325MG 1 TAB TABLET PO PRN ×2 (05:42→10:51)
[2017-09-27 06:26] LABS: BASO # 0.1 x10^3/uL (0.0-0.2); BASO % 1 % (0-3); EOS % 4 % (0-3); HEMATOCRIT 42.2 % (36.0-47.0); HEMOGLOBIN 14.2 g/dL (12.0-15.5); LYMPH # 2.1 x10^3/uL (1.0-4.8); LYMPH % 29 % (24-48); MEAN CORPUSCULAR HEMOGLOBIN 32 pg (25-35); MEAN CORPUSCULAR HGB CONC 34 g/dL (31-37); MEAN CORPUSCULAR VOLUME 93 fL (79-100); MONO % 13 % (0-9); NEUT % 53 % (31-73); PLATELET COUNT 325 x10^3/uL (140-400); RED BLOOD COUNT 4.51 x10^6/uL (3.50-5.40); RED CELL DISTRIBUTION WIDTH 14.6 % (11.5-14.5); WHITE BLOOD COUNT 7.3 x10^3/uL (4.0-11.0)
[2017-09-27 06:48] LABS: ALBUMIN/GLOBULIN RATIO 0.6 (1.0-1.7); CREATININE 1.3 mg/dL (0.6-1.0); GFR 39.9; POTASSIUM 4.6 mmol/L (3.5-5.1); TOTAL BILIRUBIN 0.3 mg/dL (0.2-1.0); TOTAL PROTEIN 8.1 g/dL (6.4-8.2)
[2017-09-27 07:00] VITALS: BP 143/91
[2017-09-27] MEDS: PANTOPRAZOLE 40 MG TABLET.DR. PO SCH (07:58)
[2017-09-27] MEDS: POLYETHYLENE GLYCOL 3350 17 GM PACKET. PO SCH (07:58)
[2017-09-27] MEDS: IPRATRPIUM/ALBUTEROL 0.5/2.5MG 3 ML NEBU. NEB SCH (08:00)
[2017-09-27 10:49] VITALS: BP 117/53
[2017-09-27] MEDS ORDERED: PANT40TA5 PO (13:11)
[2017-09-27] MEDS ORDERED: POLY17PO3 PO (13:11)
[2017-09-27] MEDS ORDERED: HYDR-2758 PO (13:11)
[2017-09-27] MEDS ORDERED: LIDO700A39 TD (13:12)
--- NOTE | 2017-09-27 13:15 | PDOC ---
PROGRESS NOTES Chief Complaint Chief Complaint Abd pain ASSESSMENT AND PLAN: 1. RUQ pain : no CT correlate. see (5). appreciate GI consult: colonoscopy on O/P basis 2. Bronchitis: cont levaquin, nebs, suppl O2 PRN. poss viral with pleuritic pain causing diaphragmatic pain. 3. COPD: not on inh at home, but home O2 4. Tobaccoism; cessation strongly encouraged. nicotine patch 5. Rib/diaphragmatic pain: viral pleuritis vs MSK 2/2 heavy lifting in past couple of days getting ready for . ibuprofen ATC, norco PRN 6. Constipation: no BM x1 week. MO enema, bowel regimen History of Present Illness History of Present Illness declines inhalers, bowel regimen. requests lidocaine for back pain Vitals Vitals Vital Signs Date Time Temp Pulse Resp B/P (MAP) Pulse Ox O2 Delivery O2 Flow Rate FiO2 09/27/17 11:52 18 92 Room Air 09/27/17 10:49 97.7 60 117/53 (74) 97.7 Physical Exam General: Alert, Oriented X3, Cooperative, No acute distress Heart: Regular rate Lungs: Clear Abdomen: Other (TTP upper quadrants) Extremities: No clubbing, No edema Skin: No rashes Labs LABS Laboratory Tests Test 09/27/17 04:15 09/27/17 05:15 White Blood Count 7.3 x10^3/uL (4.0-11.0) Red Blood Count 4.51 x10^6/uL (3.50-5.40) Hemoglobin 14.2 g/dL (12.0-15.5) Hematocrit 42.2 % (36.0-47.0) Mean Corpuscular Volume 93 fL (79-100) Mean Corpuscular Hemoglobin 32 pg (25-35) Mean Corpuscular Hemoglobin Concent 34 g/dL (31-37) Red Cell Distribution Width 14.6 % (11.5-14.5) Platelet Count 325 x10^3/uL (140-400) Neutrophils (%) (Auto) 53 % (31-73) Lymphocytes (%) (Auto) 29 % (24-48) Monocytes (%) (Auto) 13 % (0-9) Eosinophils (%) (Auto) 4 % (0-3) Basophils (%) (Auto) 1 % (0-3) Neutrophils # (Auto) 3.9 x10^3uL (1.8-7.7) Lymphocytes # (Auto) 2.1 x10^3/uL (1.0-4.8) Monocytes # (Auto) 0.9 x10^3/uL (0.0-1.1) Eosinophils # (Auto) 0.3 x10^3/uL (0.0-0.7) Basophils # (Auto) 0.1 x10^3/uL (0.0-0.2) Sodium Level 135 mmol/L (136-145) Potassium Level 4.6 mmol/L (3.5-5.1) Chloride Level 99 mmol/L (98-107) Carbon Dioxide Level 30 mmol/L (21-32) Anion Gap 6 (6-14) Blood Urea Nitrogen 29 mg/dL (7-20) Creatinine 1.3 mg/dL (0.6-1.0) Estimated GFR (Cockcroft-Gault) 39.9 BUN/Creatinine Ratio 22 (6-20) Glucose Level 90 mg/dL (70-99) Calcium Level 9.0 mg/dL (8.5-10.1) Total Bilirubin 0.3 mg/dL (0.2-1.0) Aspartate Amino Transf (AST/SGOT) 18 U/L (15-37) Alanine Aminotransferase (ALT/SGPT) 13 U/L (14-59) Alkaline Phosphatase 75 U/L (46-116) Total Protein 8.1 g/dL (6.4-8.2) Albumin 3.0 g/dL (3.4-5.0) Albumin/Globulin Ratio 0.6 (1.0-1.7) JUAN ROSARIO MD Sep 27, 2017 13:15
[2017-09-27] MEDS ORDERED: LIDOCAINE (700MG/PATCH) PATCH. TD ONE (13:30)
--- NOTE | 2017-09-27 15:31 | DS ---
DATE OF DISCHARGE: 09/27/2017 CHIEF COMPLAINT: Abdominal pain. HOSPITAL COURSE: The patient is a 77-year-old smoker, who presented to the hospital with right upper quadrant/rib/diaphragmatic pain going on for a couple of days. On CT, no correlate was found. This was attributed to viral pleuritis as the patient had also presented with bronchitis. She was started on Levaquin for the latter and did not require any O2 and declined any inhalers. Without any infectious symptoms, antibiotics were switched to doxy for another week on discharge. For her rib pain, she received NSAIDs as well as [place] with good control of her pain. Only other issue was severe constipation. She had not moved for 5 days at time of admission. Did receive mineral oil enema, but declined MiraLax and was therefore discharged to home with advice to follow her own regimen as desired. PHYSICAL EXAMINATION: VITAL SIGNS: blood pressure of 117/53, heart rate of 60, respiratory rate at 18. She is afebrile. GENERAL: This is a well-nourished 77-year-old woman, alert and oriented, in no acute distress. HEENT: Shows no scleral icterus. LUNGS: Clear. HEART: Regular rate and rhythm. ABDOMEN: Obese, positive bowel sounds. EXTREMITIES: Show no edema. DISCHARGE DIAGNOSES: Bronchitis, diaphragmatic pain/viral pleuritis, constipation. DISCHARGE DISPOSITION: To home. DISCHARGE CONDITION: Improved. DISCHARGE MEDICATIONS: Please refer to MAR. DISCHARGE INSTRUCTIONS: The patient will follow up with PCP in 1-2 weeks. JUAN ROSARIO MD DR: JAY/yue JOB#: [id number] / [id number] CHAITANYA
== END 2017-09-27 15:15 | disposition home or self-care (01) | DRG 194 ==
LOC: ER 23:27 → 5 SOUTH 09-25 03:25
PROVIDERS: ADMIT Internal Medicine; ATTEND Internal Medicine
DX: R09.1 Pleurisy (principal); J44.1 Chronic obstructive pulmonary disease with (acute) exacerbation; Z99.81 Dependence on supplemental oxygen; E07.9 Disorder of thyroid, unspecified; F17.210 Nicotine dependence, cigarettes, uncomplicated; F41.9 Anxiety disorder, unspecified; K59.00 Constipation, unspecified; Z90.710 Acquired absence of both cervix and uterus; Z91.19 Patient's noncompliance with other medical treatment and regimen; Z91.018 Allergy to other foods; Z86.010 Personal history of colon polyps
CPT/HCPCS: 36415; 71010; 71275; 74177; 80053; 82553; 83690; 84484; 85025; 85379; 93005; 96361; 96374; 96376; J1940; J1956; J2270; J3010; J7030; J7620; Q9967; S0028; 99285-25

== ENCOUNTER 2019-07-10 22:04 | Emergency (ER) | payer MEDICARE ==
[~2019-07-10] VITALS: Ht 157.5 cm; Wt 65.3 kg
[~2019-07-10 22:04] MED LIST: HYDR-2761 PO; LEVO25TA4 PO; LIDO700A21 TD; PANT40TA77 PO; POLY17PO28 PO
[2019-07-10 22:20] VITALS: BP 156/70
[2019-07-10] MEDS ORDERED: KETOROLAC 15 MG/ML VIAL. IM ONE (23:30)
[2019-07-10] MEDS ORDERED: DEXAMETHASONE 4 MG TABLET PO ONE (23:30)
[2019-07-10] MEDS ORDERED: ORPHENADRINE CITRATE 60 MG/2 ML VIAL. IM ONE (23:30)
--- NOTE | 2019-07-10 23:56 | RAD ---
Right hip 2 views with one view pelvis. HISTORY: Pain Single view was taken of the pelvis. There is no acute pelvic fracture. There is facet arthritis and mild degenerative change in lumbar spine. AP and lateral views were taken of the right hip. There is not evidence of an acute fracture. There is no acute osseous abnormality. IMPRESSION: 1. No pelvic fracture or acute osseous abnormality noted. 2. No right hip fracture noted Electronically signed by: Linden Petersen MD (07/10/2019 11:54 PM) [id number]
[2019-07-11] MEDS ORDERED: ORPH100T PO (00:07)
[2019-07-11] MEDS ORDERED: NAPR-695 PO (00:07)
[2019-07-11] MEDS ORDERED: PRED20TA PO (00:08)
--- NOTE | 2019-07-11 00:08 | PHYS DOC ---
Past Medical History Past Medical History: COPD Additional Past Medical Histor: on home oxygen (non compliant) Past Surgical History: Hysterectomy Alcohol Use: None Drug Use: None Adult General Chief Complaint Chief Complaint: PAIN CONTROL HPI HPI Patient is a 78 year old [f__sex] who presents with [] Review of Systems Review of Systems Constitutional: Denies fever or chills [] Eyes: Denies change in visual acuity, redness, or eye pain [] HENT: Denies nasal congestion or sore throat [] Respiratory: Denies cough or shortness of breath [] Cardiovascular: No additional information not addressed in HPI [] GI: Denies abdominal pain, nausea, vomiting, bloody stools or diarrhea [] : Denies dysuria or hematuria [] Musculoskeletal: Denies back pain or joint pain [] Integument: Denies rash or skin lesions [] Neurologic: Denies headache, focal weakness or sensory changes [] Endocrine: Denies polyuria or polydipsia [] All other systems were reviewed and found to be within normal limits, except as documented in this note. Current Medications Current Medications Current Medications Medications (Trade) Dose Ordered Sig/Edith Start Time Stop Time Status Last Admin Dose Admin Dexamethasone (Decadron) 10 mg 1X ONCE 07/10/19 23:30 07/10/19 23:31 DC 07/10/19 23:58 10 MG Ketorolac Tromethamine (Toradol 15mg Vial) 15 mg 1X ONCE 07/10/19 23:30 07/10/19 23:31 DC 07/10/19 23:58 15 MG Orphenadrine Citrate (Norflex) 60 mg 1X ONCE 07/10/19 23:30 07/10/19 23:31 DC 07/10/19 23:58 60 MG Allergies Allergies Allergies Coded Allergies Type Severity Reaction Last Updated Verified rice Allergy Severe 09/27/17 Yes Physical Exam Physical Exam Constitutional: Well developed, well nourished, no acute distress, non-toxic appearance. [] HENT: Normocephalic, atraumatic, bilateral external ears normal, oropharynx moist, no oral exudates, nose normal. [] Eyes: PERRLA, EOMI, conjunctiva normal, no discharge. [] Neck: Normal range of motion, no tenderness, supple, no stridor. [] Cardiovascular:Heart rate regular rhythm, no murmur [] Lungs & Thorax: Bilateral breath sounds clear to auscultation [] Abdomen: Bowel sounds normal, soft, no tenderness, no masses, no pulsatile masses. [] Skin: Warm, dry, no erythema, no rash. [] Back: No tenderness, no CVA tenderness. [] Extremities: No tenderness, no cyanosis, no clubbing, ROM intact, no edema. [] Neurologic: Alert and oriented X 3, normal motor function, normal sensory function, no focal deficits noted. [] Psychologic: Affect normal, judgement normal, mood normal. [] Current Patient Data Vital Signs Vital Signs Date Time Temp Pulse Resp B/P (MAP) Pulse Ox O2 Delivery O2 Flow Rate FiO2 07/10/19 22:20 98.3 70 19 156/70 (98) 91 Room Air 98.3 EKG EKG [] Radiology/Procedures Radiology/Procedures [] Course & Med Decision Making Course & Med Decision Making Pertinent Labs and Imaging studies reviewed. (See chart for details) [] Dragon Disclaimer Dragon Disclaimer This electronic medical record was generated, in whole or in part, using a voice recognition dictation system. Departure Departure Impression: Primary Impression: Hip pain Additional Impressions: Left forearm pain Kyphosis Disposition: HOME, SELF-CARE Condition: STABLE Referrals: NO PCP (PCP) JULIETA MULLEN MD Patient Instructions: Arthritis, Nonspecific, [id number], Hip Pain Scripts Prednisone (PREDNISONE) 20 Mg Tablet 2 TAB PO DAILY, #8 TAB Prov: ALBERTO CALDERON DO 07/11/19 Orphenadrine Citrate (ORPHENADRINE CITRATE) 100 Mg Tablet.er 100 MG PO BID, #14 Prov: ALBERTO CALDERON DO 07/11/19 Naproxen (NAPROXEN) 375 Mg Tablet 375 MG PO TID PRN for PAIN, #30 Prov: ALBERTO CALDERON DO 07/11/19 Problem Qualifiers Primary Impression: Hip pain Laterality: right Qualified Codes: M25.551 - Pain in right hip Additional Impressions: Kyphosis Kyphosis type: unspecified Spinal region: unspecified Qualified Codes: M40.209 - Unspecified kyphosis, site unspecified ALBERTO CALDERON DO Jul 11, 2019 00:08
== END 2019-07-11 00:30 | disposition home or self-care (01) ==
LOC: ER 22:04
DX: M25.551 Pain in right hip (principal); M79.632 Pain in left forearm; M40.209 Unspecified kyphosis, site unspecified; J44.9 Chronic obstructive pulmonary disease, unspecified; Z90.710 Acquired absence of both cervix and uterus
CPT/HCPCS: 73502; 96372; 99284; J1885; J2360; J8540

== ENCOUNTER 2019-09-18 09:20 | Inpatient (IN) | payer MEDICARE ==
[~2019-09-18] VITALS: Ht 160 cm; Wt 55.0 kg
[~2019-09-18 09:20] MED LIST changes: +NAPR-695 PO; +ORPH100T PO; +PRED20TA PO
--- NOTE | 2019-09-18 10:22 | RAD ---
EXAM: AP View of the chest DATE: 09/18/2019 9:53 AM INDICATION: Dyspnea on exertion COMPARISON: 09/25/2017 FINDINGS: The heart is not enlarged. Atherosclerotic calcifications of the tortuous aorta are seen. Mediastinal and hilar contours are stable. Bilateral perihilar and lung base airspace opacities are seen. Trace left pleural effusion. No right pleural effusion. No pneumothorax. Emphysematous changes are seen. IMPRESSION: Bilateral perihilar and lung base airspace opacities are again seen, in general grossly stable. Electronically signed by: Dung Barr MD (09/18/2019 10:19 AM) [id number]
[2019-09-18 10:28] LABS: BILIRUBIN,URINE NEGATIVE (NEG); CLARITY,URINE CLEAR; COLOR,URINE YELLOW; NITRITE,URINE NEGATIVE (NEG); PROTEIN,URINE NEGATIVE (NEG-TRACE); UROBILINOGEN,URINE 0.2 mg/dL (0.2 mg/dL)
[2019-09-18] MEDS ORDERED: IPRATRPIUM/ALBUTEROL 0.5/2.5MG 3 ML NEBU. NEB ONE (10:30)
[2019-09-18] MEDS ORDERED: ONDANSETRON PF 4 MG/2 ML VIAL. IV ONE (10:30)
[2019-09-18] MEDS ORDERED: fentaNYL PF VIAL 100 MCG/2 ML VIAL IV ONE ×2 (10:30→12:15)
[2019-09-18 10:44] LABS: BACTERIA,URINE 0 /HPF (0-FEW); SQUAMOUS EPITHELIAL CELL,UR MOD /LPF
--- NOTE | 2019-09-18 11:05 | PHYS DOC ---
Past Medical History Past Medical History: Arthritis, COPD, GERD, Hypothyroid, CT Additional Past Medical Histor: on home oxygen (non compliant), Cardiac Arrest Past Surgical History: , Hysterectomy, Other Additional Past Surgical Histo: R elbow Alcohol Use: None Drug Use: None Adult General Chief Complaint Chief Complaint: MECHANICAL FALL HPI HPI Patient is a 78 year old female, accompanied by her family, who presents to the ER for multiple falls over recent weeks. Pt states that she uses a cane for ambulation but does not use a walker. Pt has a dark bruise on her left chin and right breast after she fell in her bathroom last Saturday, pt states she hit her b athtub. She states she does not know why she is falling, she denies any chest pain, dizziness, or syncopal episodes. She complains of chronic back pain, left elbow pain, and left shoulder pain at this time. Pt denies any chest pain. She reports shortness of breath with ambulation. Pt states that both of her feet have been swollen for the last 3 weeks. Currently she rates her pain a 10/10 on the pain scale, she denies any alleviating or exacerbating factors. Her son states that the PCP has been prescribing her prednisone that she has been taking more than prescribed. Son states that the patient believes the prednisone is pain medication. She has taken 31 10 mg tablets since 09/11/19, prior to that she was prescribed 31 tablets on 08/31/19. Review of Systems Review of Systems Constitutional: Denies fever or chills [] Eyes: Denies change in visual acuity, redness, or eye pain [] HENT: Denies nasal congestion or sore throat [] Respiratory: Denies cough; see HPI Cardiovascular: denies chest pain and palpitations, No additional information not addressed in HPI [] GI: Denies abdominal pain, nausea, vomiting, or diarrhea [] : Denies dysuria or hematuria [] Musculoskeletal: see HPI Integument: see HPI Neurologic: Denies headache, focal weakness or sensory changes [] Endocrine: Denies polyuria or polydipsia [] Complete systems were reviewed and found to be within normal limits, except as documented in this note. Current Medications Current Medications Current Medications Medications (Trade) Dose Ordered Sig/Edith Start Time Stop Time Status Last Admin Dose Admin Albuterol/ Ipratropium (Duoneb) 3 ml 1X ONCE 09/18/19 10:30 09/18/19 10:31 DC 09/18/19 10:08 3 ML Ceftriaxone Sodium (Rocephin) 1 gm 1X ONCE 09/18/19 11:15 09/18/19 11:16 DC 09/18/19 12:09 1 GM Fentanyl Citrate (Fentanyl 2ml Vial) 50 mcg 1X ONCE 09/18/19 12:15 09/18/19 12:16 DC 09/18/19 12:09 50 MCG Ondansetron HCl (Zofran) 4 mg 1X ONCE 09/18/19 10:30 09/18/19 10:31 DC 09/18/19 10:56 4 MG Allergies Allergies Allergies Coded Allergies Type Severity Reaction Last Updated Verified rice Allergy Severe 09/27/17 Yes Physical Exam Physical Exam Constitutional: Well developed, well nourished, no acute distress, non-toxic dawit earance. [] HENT: Normocephalic, atraumatic, bilateral external ears normal, nose normal. [] Eyes: PERRLA, EOMI, conjunctiva normal, no discharge. [] Neck: Normal range of motion, no stridor. [] Cardiovascular:Heart rate regular rhythm Lungs & Thorax: Bilateral breath sounds clear to auscultation [] Abdomen: Bowel sounds normal, soft, no tenderness, no masses, no pulsatile masses. [] Skin: Warm, dry, no erythema, no rash; bruising to chin and left breast. [] Back: No tenderness, Extremities: L shoulder non-specific pain, no bony tenderness, no cyanosis, no clubbing, ROM limited due to pain; 2+ edema bilateral lower extremities. [] Neurologic: Alert and oriented X 3, no focal deficits noted. [] Psychologic: Affect normal, judgement normal, mood normal. [] Current Patient Data Vital Signs Vital Signs Date Time Temp Pulse Resp B/P (MAP) Pulse Ox O2 Delivery O2 Flow Rate FiO2 09/18/19 12:15 87 18 96 09/18/19 09:25 97.4 167/70 (102) Room Air 97.4 Lab Values Laboratory Tests Test 09/18/19 09:40 09/18/19 10:42 09/18/19 11:30 Urine Collection Type U cath Urine Color Yellow Urine Clarity Clear Urine pH 6.0 Urine Specific [place] 1.025 Urine Protein Negative mg/dL (NEG-TRACE) Urine Glucose (UA) Negative mg/dL (NEG) Urine Ketones (Stick) Negative mg/dL (NEG) Urine Blood Small (NEG) Urine Nitrite Negative (NEG) Urine Bilirubin Negative (NEG) Urine Urobilinogen Dipstick 0.2 mg/dL (0.2 mg/dL) Urine Leukocyte Esterase Moderate (NEG) Urine RBC 6-10 /HPF (0-2) Urine WBC 11-20 /HPF (0-4) Urine Squamous Epithelial Cells Mod /LPF Urine Renal Epithelial Cells Occ /LPF Urine Bacteria 0 /HPF (0-FEW) Urine Mucus Mod /LPF Lactic Acid Level 1.1 mmol/L (0.4-2.0) White Blood Count 8.2 x10^3/uL (4.0-11.0) Red Blood Count 4.43 x10^6/uL (3.50-5.40) Hemoglobin 13.3 g/dL (12.0-15.5) Hematocrit 39.8 % (36.0-47.0) Mean Corpuscular Volume 90 fL (79-100) Mean Corpuscular Hemoglobin 30 pg (25-35) Mean Corpuscular Hemoglobin Concent 34 g/dL (31-37) Red Cell Distribution Width 17.7 % (11.5-14.5) H Platelet Count 282 x10^3/uL (140-400) Neutrophils (%) (Auto) 69 % (31-73) Lymphocytes (%) (Auto) 22 % (24-48) L Monocytes (%) (Auto) 7 % (0-9) Eosinophils (%) (Auto) 2 % (0-3) Basophils (%) (Auto) 1 % (0-3) Neutrophils # (Auto) 5.7 x10^3/uL (1.8-7.7) Lymphocytes # (Auto) 1.8 x10^3/uL (1.0-4.8) Monocytes # (Auto) 0.6 x10^3/uL (0.0-1.1) Eosinophils # (Auto) 0.1 x10^3/uL (0.0-0.7) Basophils # (Auto) 0.0 x10^3/uL (0.0-0.2) Prothrombin Time 12.7 SEC (11.7-14.0) Prothrombin Time INR 1.0 (0.8-1.1) Activated Partial Thromboplast Time 25 SEC (24-38) Sodium Level 144 mmol/L (136-145) Potassium Level 4.0 mmol/L (3.5-5.1) Chloride Level 107 mmol/L (98-107) Carbon Dioxide Level 29 mmol/L (21-32) Anion Gap 8 (6-14) Blood Urea Nitrogen 30 mg/dL (7-20) H Creatinine 0.8 mg/dL (0.6-1.0) Estimated GFR (Cockcroft-Gault) 69.7 BUN/Creatinine Ratio 38 (6-20) H Glucose Level 90 mg/dL (70-99) Calcium Level 8.5 mg/dL (8.5-10.1) Total Bilirubin 0.4 mg/dL (0.2-1.0) Aspartate Amino Transferase (AST) 26 U/L (15-37) Alanine Aminotransferase (ALT) 23 U/L (14-59) Alkaline Phosphatase 65 U/L (46-116) Troponin I Quantitative < 0.017 ng/mL (0.000-0.055) ZU-Qsw-I-Type Natriuretic Peptide 494 pg/mL (0-449) H Total Protein 6.3 g/dL (6.4-8.2) L Albumin 3.0 g/dL (3.4-5.0) L Albumin/Globulin Ratio 0.9 (1.0-1.7) L Laboratory Tests 09/18/19 11:30 Laboratory Tests 09/18/19 11:30 Microbiology 09/18/19 Urine Culture - Final, Complete 09/18/19 Urine Culture Result 1 (MAGALI) - Final, Complete EKG EKG 1012- SR rate 79, QRS(T) abnormality consider inferior myocardial damage, NO STEMI read by Dr. Nino[] Radiology/Procedures Radiology/Procedures PROCEDURE: CHEST AP ONLY EXAM: AP View of the chest DATE: 09/18/2019 9:53 AM INDICATION: Dyspnea on exertion COMPARISON: 09/25/2017 FINDINGS: The heart is not enlarged. Atherosclerotic calcifications of the tortuous aorta are seen. Mediastinal and hilar contours are stable. Bilateral perihilar and lung base airspace opacities are seen. Trace left pleural effusion. No right pleural effusion. No pneumothorax. Emphysematous changes are seen. IMPRESSION: Bilateral perihilar and lung base airspace opacities are again seen, in general grossly stable. PROCEDURE: CT HEAD AND MAXILLOFACIAL [facility] Compliance Statement: One or more of the following individualized dose reduction techniques were utilized for this examination: 1. Automated exposure control 2. Adjustment of the mA and/or kV according to patient size 3. Use of iterative reconstruction technique CT head , maxillofacial and cervical spine without contrast 09/18/2019 12:31 PM INDICATION: Falls with bruising to the chin COMPARISON: None available TECHNIQUE: Multiple axial CT images of the head were obtained from skull base through the vertex without intravenous contrast. Multiple axial CT images of the cervical spine and maxillofacial structures were obtained without intravenous contrast. Coronal and sagittal reformats are provided. FINDINGS: Head and maxillofacial: Ventricles, sulci and basal cisterns are prominent compatible with moderate generalized cerebral volume loss. Low-attenuation in the periventricular white matter is suggestive of chronic small vessel ischemic changes. Was There is no hydrocephalus. [place]-white matter differentiation is normal. There is no acute intracranial hemorrhage. There is no mass, mass effect or midline shift. Posterior fossa is normal in appearance. Osseous orbits are intact. Globes are spherical and contour. There is no lens dislocation. Extraocular muscles are intact. No intraconal or extraconal mass is identified. Skull base is intact. Nasal bones are intact. Nasal septum is predominantly midline. Paranasal sinuses are well aerated. No acute fracture of the paranasal sinuses is identified. Pterygoid plates are intact. Temporomandibular joints are well aligned. Mastoid air cells are well aerated. Middle ear cavities are well aerated. Visualized nasopharynx and oropharynx are intact. Soft tissues are normal. Maxilla is intact. 2 mm ossific fragment is identified along the right anterior mandible along the alveolar ridge. Moderate calcified plaque is identified involving the carotid bifurcations. Visualized cervical spine appears intact. IMPRESSION: 1. No acute intracranial hemorrhage. Moderate generalized cerebral volume loss. Degree of ventriculomegaly may be out of proportion to sulcal volume loss. Correlate with any normal pressure hydrocephalus. 2. 2 mm ossific fragment is identified along the right anterior mandible along the alveolar ridge. Correlate with any point tenderness as this may represent a fracture. [] Course & Med Decision Making Course & Med Decision Making Pertinent Labs and Imaging studies reviewed. (See chart for details) dx: UTI, frequent falls Spoke with Dr. Simon who is the admitting physician, and care was assumed following discussion of patient. Patient's vital signs stable. Patient remains afebrile, appears nontoxic, respirations even and unlabored. Patient will be admitted to the med/tele floor. Patient's case and plan of care also discussed with Dr. Nino [] Lucio Disclaimer Dragon Disclaimer This electronic medical record was generated, in whole or in part, using a voice recognition dictation system. Departure Departure Impression: Primary Impression: UTI (urinary tract infection) Additional Impression: Frequent falls Disposition: 09 ADMITTED INPATIENT Admitting Physician: Kun Simon Condition: STABLE Referrals: NO PCP (PCP) Problem Qualifiers Primary Impression: UTI (urinary tract infection) Urinary tract infection type: site unspecified Hematuria presence: with hematuria Qualified Codes: N39.0 - Urinary tract infection, site not specified; R31.9 - Hematuria, unspecified JO SOLIS [employer]PERATOR HELPER Sep 18, 2019 11:05
[2019-09-18] MEDS ORDERED: cefTRIAXone IV Push 1 GM VIAL. IVP ONE (11:15)
[2019-09-18 11:41] LABS: BASO % 1 % (0-3); EOS # 0.1 x10^3/uL (0.0-0.7); EOS % 2 % (0-3); HEMATOCRIT 39.8 % (36.0-47.0); HEMOGLOBIN 13.3 g/dL (12.0-15.5); LYMPH # 1.8 x10^3/uL (1.0-4.8); LYMPH % 22 % (24-48); MEAN CORPUSCULAR HEMOGLOBIN 30 pg (25-35); MEAN CORPUSCULAR HGB CONC 34 g/dL (31-37); MEAN CORPUSCULAR VOLUME 90 fL (79-100); MONO # 0.6 x10^3/uL (0.0-1.1); MONO % 7 % (0-9); NEUT # 5.7 x10^3/uL (1.8-7.7); NEUT % 69 % (31-73); PLATELET COUNT 282 x10^3/uL (140-400); RED BLOOD COUNT 4.43 x10^6/uL (3.50-5.40); RED CELL DISTRIBUTION WIDTH 17.7 % (11.5-14.5); WHITE BLOOD COUNT 8.2 x10^3/uL (4.0-11.0)
[2019-09-18 11:48] LABS: CALCIUM 8.5 mg/dL (8.5-10.1); CREATININE 0.8 mg/dL (0.6-1.0); GFR 69.7
[2019-09-18 11:55] LABS: ALBUMIN/GLOBULIN RATIO 0.9 (1.0-1.7); TOTAL BILIRUBIN 0.4 mg/dL (0.2-1.0); TOTAL PROTEIN 6.3 g/dL (6.4-8.2)
[2019-09-18 12:02] LABS: PROTHROMBIN TIME PATIENT 12.7 SEC (11.7-14.0)
--- NOTE | 2019-09-18 12:16 | EKG ---
[facility] [address] [place] [address] Test Date: 2019-09-18 Test Time: 10:12:52 Pat Name: BARTOLO MADISON Department: Room: Gender: F [employer] Work[employer]: : 1940 Requested By: JO SOLIS Order Number: [id number] Reading MD: Measurements Intervals [place] Rate: 79 P: 56 MS: 110 QRS: 3 QRSD: 86 T: 85 QT: 350 QTc: 402 Interpretive Statements SINUS RHYTHM QRS(T) CONTOUR ABNORMALITY CONSIDER INFERIOR MYOCARDIAL DAMAGE POSSIBLY ABNORMAL ECG RI6.01 No previous ECG available for comparison
--- NOTE | 2019-09-18 13:09 | RAD ---
PQRS Compliance Statement: One or more of the following individualized dose reduction techniques were utilized for this examination: 1. Automated exposure control 2. Adjustment of the mA and/or kV according to patient size 3. Use of iterative reconstruction technique CT head , maxillofacial and cervical spine without contrast 09/18/2019 12:31 PM INDICATION: Falls with bruising to the chin COMPARISON: None available TECHNIQUE: Multiple axial CT images of the head were obtained from skull base through the vertex without intravenous contrast. Multiple axial CT images of the cervical spine and maxillofacial structures were obtained without intravenous contrast. Coronal and sagittal reformats are provided. FINDINGS: Head and maxillofacial: Ventricles, sulci and basal cisterns are prominent compatible with moderate generalized cerebral volume loss. Low-attenuation in the periventricular white matter is suggestive of chronic small vessel ischemic changes. Was There is no hydrocephalus. Borre[place]-white matter differentiation is normal. There is no acute intracranial hemorrhage. There is no mass, mass effect or midline shift. Posterior fossa is normal in appearance. Osseous orbits are intact. Globes are spherical and contour. There is no lens dislocation. Extraocular muscles are intact. No intraconal or extraconal mass is identified. Skull base is intact. Nasal bones are intact. Nasal septum is predominantly midline. Paranasal sinuses are well aerated. No acute fracture of the paranasal sinuses is identified. Pterygoid plates are intact. Temporomandibular joints are well aligned. Mastoid air cells are well aerated. Middle ear cavities are well aerated. Visualized nasopharynx and oropharynx are intact. Soft tissues are normal. Maxilla is intact. 2 mm ossific fragment is identified along the right anterior mandible along the alveolar ridge. Moderate calcified plaque is identified involving the carotid bifurcations. Visualized cervical spine appears intact. IMPRESSION: 1. No acute intracranial hemorrhage. Moderate generalized cerebral volume loss. Degree of ventriculomegaly may be out of proportion to sulcal volume loss. Correlate with any normal pressure hydrocephalus. 2. 2 mm ossific fragment is identified along the right anterior mandible along the alveolar ridge. Correlate with any point tenderness as this may represent a fracture. Electronically signed by: Nicol Reyes MD (09/18/2019 1:06 PM) [id number]
[2019-09-18] MEDS ORDERED: fentaNYL PF VIAL 100 MCG/2 ML VIAL IVP ONE (14:00)
[2019-09-18] MEDS ORDERED: LEVO50TA5 PO (14:42)
[2019-09-18] MEDS ORDERED: APIX5TAB PO (14:46)
[2019-09-18] MEDS ORDERED: DILT180C29 PO (14:46)
[2019-09-18] MEDS ORDERED: PRED20TA PO (15:05)
[2019-09-18 15:24] VITALS: BP 132/73
[2019-09-18] MEDS ORDERED: LIDOCAINE (700MG/PATCH) PATCH. TD PRN ×2 (16:00→16:15)
[2019-09-18] MEDS ORDERED: PATCH REMOVAL. MC PRN (16:15)
[2019-09-18] MEDS: HYDROcodone/APAP 5/325MG 1 TAB TABLET PO PRN (18:25)
[2019-09-18 19:00] VITALS: BP 104/52
[2019-09-18] MEDS: APIXABAN 5 MG TABLET. PO SCH (20:17)
[2019-09-18 23:00] VITALS: BP 113/63
--- NOTE | 2019-09-19 02:47 | CONS ---
DATE OF CONSULTATION: 09/18/2019 I saw her at the request of Dr. Kun Simon. She is in room 571. HISTORY OF PRESENT ILLNESS: This is a 78-year-old female with known arthritis, chronic obstructive pulmonary disease, gastroesophageal reflux disease, hypothyroidism, myocardial infarction, on home oxygen but noncompliant, had a cardiac arrest in the past, also had , hysterectomy. She complains of pain in her left shoulder and elbow area. She apparently had a mechanical fall. She lives with her son who works. She had no stairs for her to manage. She does not like to use a walker. She uses a cane and holds on to the furniture while walking. The patient admits neck stiffness and pain. She admits numbness in her left ulnar nerve distribution in the hand. The patient denies any trouble with her bowel or bladder control. Since admission, she had CT scan of her brain and facial bones, which revealed no acute hemorrhage, moderate generalized cerebral volume loss, may be out of proportion to self-care volume loss, correlate with any normal pressure hydrocephalus, 2 mm ossific fragment identified along the right anterior mandible along the alveolar ridge. This may represent a fracture. The patient had chest x-ray done, which revealed bilateral perihilar and lung base airspace opacities, generally stable. ALLERGIES: The patient is not known allergic to any medication, but had some problems taking rice. PHYSICAL EXAMINATION: Today revealed an elderly female. She is alert, oriented to time, place, person and circumstance and follows commands appropriately, moves all 4 extremities voluntarily where she had overall 4+/5 grade muscle strength with relatively increased weakness in left hand, ulnar hand intrinsic muscles. The patient had muscle atrophy involving hand intrinsic muscles, both thenar and hypothenar eminence muscle groups. She had decreased sensory perception over left ulnar nerve distribution in the hand when compared to right side. Negative Tinel sign over ulnar nerve at the wrist and elbow, but positive Tinel sign over left median nerve at the anterior aspect of the wrist. She had tenderness to palpation over left posterior shoulder girdle muscles and over sacroiliac joint area and straight leg raising test is negative bilaterally. She had exaggerated knee jerks, absent ankle jerks bilaterally. She is independent with bed mobility and transfers. Once up, she can walk using a roller walker. I did not see any loss of balance when she is using roller walker, but she does not want to use a roller walker. She is looking for her cane, which I could not see at bedside. 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 The patient with known arthritis, chronic obstructive pulmonary disease, gastroesophageal reflux disease, hypothyroidism, previous myocardial infarction and cardiac arrest, noncompliant with use of oxygen. Also, chronic left elbow pain, but I did not see any obvious abnormality at her left elbow. No evidence of any olecranon bursitis or medial or lateral humeral epicondylitis at present time. RECOMMENDATIONS: To obtain MRI scan of her cervical vertebrae to rule out cervical spinal stenosis. To consider electromyography and nerve conduction studies on an outpatient basis, to rule out any compression neuropathy. For sure, she had peripheral neuropathy, also contributing to her balance problems. Dr. Simon, I appreciate asking me to participate in the care of this interesting patient. I will be glad to see her for followup with you on as needed basis. ADÁN ESQUIVEL MD DR: TRENT/yue JOB#: [id number] / [id number]
[2019-09-19 03:00] VITALS: BP 125/59
[2019-09-19] MEDS: HYDROcodone/APAP 5/325MG 1 TAB TABLET PO PRN ×2 (04:47→19:13)
[2019-09-19 07:00] VITALS: BP_SYST 104; BP_SYST 133; BP_DIAS 58; BP_DIAS 73
[2019-09-19] MEDS: LEVOTHYROXINE 50 MCG TABLET PO SCH (08:33)
[2019-09-19] MEDS: PANTOPRAZOLE 40 MG TABLET.DR. PO SCH (08:34)
[2019-09-19] MEDS: APIXABAN 5 MG TABLET. PO SCH ×2 (08:48→20:52)
[2019-09-19] MEDS: predniSONE 20 MG TABLET PO SCH (08:49)
[2019-09-19 11:00] VITALS: BP 112/63
--- NOTE | 2019-09-19 11:07 | PDOC ---
PROGRESS NOTES Subjective Subjective She admits continued left upper back area pain. Objective Objective Vital Signs Date Time Temp Pulse Resp B/P (MAP) Pulse Ox O2 Delivery O2 Flow Rate FiO2 09/19/19 08:55 72 133/73 09/19/19 08:00 Nasal Cannula 3.0 09/19/19 07:00 97.5 16 100 97.5 Intake and Output 09/19/19 06:59 Intake Total 950 ml Output Total 200 ml Balance 750 ml Intake Oral 950 ml Output Urine Total 200 ml # Voids 1 Physical Exam Physical Exam She is alert,comfortable and lying on her right side in bed and she continues with tenderness to palpation over left posterior shoulder girdle muscles and balance problems and exaggerated knee reflexes and absent ankle jerks. Assessment Assessment Problems Medical Problems: (1) Frequent falls Status: Acute (2) UTI (urinary tract infection) Status: Acute Plan Plan of Care To await mri scan of cervical spine to rule out cervical spinal stenosis,may be responsible to her ataxia,in addition to peripheral neuropathy and to continue physical and occupational therapy follow up. Comment Review of Relevant I have reviewed the following items sary (where applicable) has been applied. Labs Laboratory Tests Test 09/18/19 09:40 09/18/19 10:42 09/18/19 11:30 Urine Collection Type U cath Urine Color Yellow Urine Clarity Clear Urine pH 6.0 Urine Specific [place] 1.025 Urine Protein Negative mg/dL (NEG-TRACE) Urine Glucose (UA) Negative mg/dL (NEG) Urine Ketones (Stick) Negative mg/dL (NEG) Urine Blood Small (NEG) Urine Nitrite Negative (NEG) Urine Bilirubin Negative (NEG) Urine Urobilinogen Dipstick 0.2 mg/dL (0.2 mg/dL) Urine Leukocyte Esterase Moderate (NEG) Urine RBC 6-10 /HPF (0-2) Urine WBC 11-20 /HPF (0-4) Urine Squamous Epithelial Cells Mod /LPF Urine Renal Epithelial Cells Occ /LPF Urine Bacteria 0 /HPF (0-FEW) Urine Mucus Mod /LPF Lactic Acid Level 1.1 mmol/L (0.4-2.0) White Blood Count 8.2 x10^3/uL (4.0-11.0) Red Blood Count 4.43 x10^6/uL (3.50-5.40) Hemoglobin 13.3 g/dL (12.0-15.5) Hematocrit 39.8 % (36.0-47.0) Mean Corpuscular Volume 90 fL (79-100) Mean Corpuscular Hemoglobin 30 pg (25-35) Mean Corpuscular Hemoglobin Concent 34 g/dL (31-37) Red Cell Distribution Width 17.7 % (11.5-14.5) Platelet Count 282 x10^3/uL (140-400) Neutrophils (%) (Auto) 69 % (31-73) Lymphocytes (%) (Auto) 22 % (24-48) Monocytes (%) (Auto) 7 % (0-9) Eosinophils (%) (Auto) 2 % (0-3) Basophils (%) (Auto) 1 % (0-3) Neutrophils # (Auto) 5.7 x10^3/uL (1.8-7.7) Lymphocytes # (Auto) 1.8 x10^3/uL (1.0-4.8) Monocytes # (Auto) 0.6 x10^3/uL (0.0-1.1) Eosinophils # (Auto) 0.1 x10^3/uL (0.0-0.7) Basophils # (Auto) 0.0 x10^3/uL (0.0-0.2) Prothrombin Time 12.7 SEC (11.7-14.0) Prothromb Time International Ratio 1.0 (0.8-1.1) Activated Partial Thromboplast Time 25 SEC (24-38) Sodium Level 144 mmol/L (136-145) Potassium Level 4.0 mmol/L (3.5-5.1) Chloride Level 107 mmol/L (98-107) Carbon Dioxide Level 29 mmol/L (21-32) Anion Gap 8 (6-14) Blood Urea Nitrogen 30 mg/dL (7-20) Creatinine 0.8 mg/dL (0.6-1.0) Estimated GFR (Cockcroft-Gault) 69.7 BUN/Creatinine Ratio 38 (6-20) Glucose Level 90 mg/dL (70-99) Calcium Level 8.5 mg/dL (8.5-10.1) Total Bilirubin 0.4 mg/dL (0.2-1.0) Aspartate Amino Transf (AST/SGOT) 26 U/L (15-37) Alanine Aminotransferase (ALT/SGPT) 23 U/L (14-59) Alkaline Phosphatase 65 U/L (46-116) Troponin I Quantitative < 0.017 ng/mL (0.000-0.055) CU-Njf-V-Type Natriuretic Peptide 494 pg/mL (0-449) Total Protein 6.3 g/dL (6.4-8.2) Albumin 3.0 g/dL (3.4-5.0) Albumin/Globulin Ratio 0.9 (1.0-1.7) Laboratory Tests Test 09/18/19 11:30 White Blood Count 8.2 x10^3/uL (4.0-11.0) Red Blood Count 4.43 x10^6/uL (3.50-5.40) Hemoglobin 13.3 g/dL (12.0-15.5) Hematocrit 39.8 % (36.0-47.0) Mean Corpuscular Volume 90 fL (79-100) Mean Corpuscular Hemoglobin 30 pg (25-35) Mean Corpuscular Hemoglobin Concent 34 g/dL (31-37) Red Cell Distribution Width 17.7 % (11.5-14.5) Platelet Count 282 x10^3/uL (140-400) Neutrophils (%) (Auto) 69 % (31-73) Lymphocytes (%) (Auto) 22 % (24-48) Monocytes (%) (Auto) 7 % (0-9) Eosinophils (%) (Auto) 2 % (0-3) Basophils (%) (Auto) 1 % (0-3) Neutrophils # (Auto) 5.7 x10^3/uL (1.8-7.7) Lymphocytes # (Auto) 1.8 x10^3/uL (1.0-4.8) Monocytes # (Auto) 0.6 x10^3/uL (0.0-1.1) Eosinophils # (Auto) 0.1 x10^3/uL (0.0-0.7) Basophils # (Auto) 0.0 x10^3/uL (0.0-0.2) Prothrombin Time 12.7 SEC (11.7-14.0) Prothromb Time International Ratio 1.0 (0.8-1.1) Activated Partial Thromboplast Time 25 SEC (24-38) Sodium Level 144 mmol/L (136-145) Potassium Level 4.0 mmol/L (3.5-5.1) Chloride Level 107 mmol/L (98-107) Carbon Dioxide Level 29 mmol/L (21-32) Anion Gap 8 (6-14) Blood Urea Nitrogen 30 mg/dL (7-20) Creatinine 0.8 mg/dL (0.6-1.0) Estimated GFR (Cockcroft-Gault) 69.7 BUN/Creatinine Ratio 38 (6-20) Glucose Level 90 mg/dL (70-99) Calcium Level 8.5 mg/dL (8.5-10.1) Total Bilirubin 0.4 mg/dL (0.2-1.0) Aspartate Amino Transf (AST/SGOT) 26 U/L (15-37) Alanine Aminotransferase (ALT/SGPT) 23 U/L (14-59) Alkaline Phosphatase 65 U/L (46-116) Troponin I Quantitative < 0.017 ng/mL (0.000-0.055) SC-Pvg-C-Type Natriuretic Peptide 494 pg/mL (0-449) Total Protein 6.3 g/dL (6.4-8.2) Albumin 3.0 g/dL (3.4-5.0) Albumin/Globulin Ratio 0.9 (1.0-1.7) Medications Current Medications Albuterol/ Ipratropium (Duoneb) 3 ml 1X ONCE NEB Last administered on 09/18/19at 10:08; Start 09/18/19 at 10:30; Stop 09/18/19 at 10:31; Status DC Fentanyl Citrate (Fentanyl 2ml Vial) 50 mcg 1X ONCE IV Last administered on 09/18/19at 10:56; Start 09/18/19 at 10:30; Stop 09/18/19 at 10:31; Status DC Ondansetron HCl (Zofran) 4 mg 1X ONCE IV Last administered on 09/18/19at 10:56; Start 09/18/19 at 10:30; Stop 09/18/19 at 10:31; Status DC Ceftriaxone Sodium (Rocephin) 1 gm 1X ONCE IVP Last administered on 09/18/19at 12:09; Start 09/18/19 at 11:15; Stop 09/18/19 at 11:16; Status DC Fentanyl Citrate (Fentanyl 2ml Vial) 50 mcg 1X ONCE IV Last administered on 09/18/19at 12:09; Start 09/18/19 at 12:15; Stop 09/18/19 at 12:16; Status DC Fentanyl Citrate (Fentanyl 2ml Vial) 50 mcg 1X ONCE IVP Last administered on 09/18/19at 14:05; Start 09/18/19 at 14:00; Stop 09/18/19 at 14:01; Status DC Ceftriaxone Sodium (Rocephin) 1 gm Q24H IVP ; Start 09/19/19 at 11:00 Apixaban (Eliquis) 5 mg BID PO ; Start 09/18/19 at 21:00 Diltiazem HCl (Cardizem 24hr Cd) 180 mg DAILY PO ; Start 09/19/19 at 09:00 Acetaminophen/ Hydrocodone Bitart (Lortab 5/325) 1 tab PRN Q8HRS PRN PO PAIN Last administered on 09/19/19at 04:47; Start 09/18/19 at 15:15 Levothyroxine Sodium (Synthroid) 50 mcg DAILYAC PO Last administered on 09/19/19at 08:33; Start 09/19/19 at 07:30 Pantoprazole Sodium (Protonix) 40 mg DAILYAC PO Last administered on 09/19/19at 08:34; Start 09/19/19 at 07:30 Prednisone (Prednisone) 20 mg DAILY PO Last administered on 09/19/19at 08:49; Start 09/19/19 at 09:00 Lidocaine (Lidoderm) 1 patch DAILY PRN TD back pain; Start 09/18/19 at 16:00; Stop 09/18/19 at 16:15; Status DC Miscellaneous (Lidoderm Patch Removal) 1 ea QHS PRN MC IF PATCH APPLIED; Start 09/18/19 at 16:15 Lidocaine (Lidoderm) 1 patch DAILY PRN TD back pain; Start 09/18/19 at 16:15 Lactobacillus Rhamnosus (Culturelle) 1 cap BID PO ; Start 09/19/19 at 21:00 Active Scripts Active Orphenadrine Citrate 100 Mg Tablet.er 100 Mg PO BID Naproxen 375 Mg Tablet 375 Mg PO TID PRN Lidocaine PATCH (Lidocaine) 1 Each Adh..patch 1 Patch TD DAILY PRN Polyethylene Glycol 3350 17 Gm Powd.pack 17 Gm PO BID Pantoprazole Sodium (Pantoprazole Sodium) 40 Mg Tablet.dr 40 Mg PO DAILYAC Hydrocodone-Apap 5-325 (Hydrocodone Bit/Acetaminophen) 1 Each Tablet 1 Tab PO PRN Q8HRS PRN Reported Prednisone 20 Mg Tablet 20 Mg PO DAILY Eliquis (Apixaban) 5 Mg Tablet 5 Mg PO BID Diltiazem 24HR Cd (Diltiazem Hcl) 180 Mg Cap.er.24h 180 Mg PO DAILY Levothyroxine Sodium 50 Mcg Tablet 50 Mcg PO DAILYAC Vitals/I & O Vital Sign - Last 24 Hours 09/18/19 09/18/19 09/18/19 09/18/19 11:30 12:00 12:15 13:30 Pulse 84 88 87 85 Resp 18 18 18 18 Pulse Ox 92 92 96 95 09/18/19 09/18/19 09/18/19 09/18/19 15:24 15:39 18:25 19:00 Temp 98.0 97.9 98.0 97.9 Pulse 89 85 Resp 16 18 B/P (MAP) 132/73 (92) 104/52 (69) Pulse Ox 97 93 O2 Delivery Nasal Cannula Nasal Cannula Room Air Nasal Cannula O2 Flow Rate 2.0 2.0 2.0 09/18/19 09/18/19 09/18/19 09/19/19 19:32 20:00 23:00 03:00 Temp 98.0 97.9 98.0 97.9 Pulse 76 63 Resp 18 18 B/P (MAP) 113/63 (80) 125/59 (81) Pulse Ox 94 93 O2 Delivery Room Air Nasal Cannula Nasal Cannula Nasal Cannula O2 Flow Rate 2.5 2.0 2.0 09/19/19 09/19/19 09/19/19 09/19/19 04:47 05:49 07:00 08:00 Temp 97.5 97.5 Pulse 72 Resp 16 B/P (MAP) 133/73 (93) Pulse Ox 100 O2 Delivery Nasal Cannula Nasal Cannula Room Air Nasal Cannula O2 Flow Rate 2.5 2.5 3.0 09/19/19 08:55 Pulse 72 B/P (MAP) 133/73 Intake and Output 09/18/19 09/18/19 09/19/19 14:59 22:59 06:59 Intake Total 550 ml 400 ml Output Total 200 ml Balance 550 ml 200 ml ADÁN ESQUIVEL MD Sep 19, 2019 11:07
[2019-09-19] MEDS: cefTRIAXone IV Push 1 GM VIAL. IVP SCH (14:00)
[2019-09-19 15:00] VITALS: BP 159/66
[2019-09-19] MEDS: ANTI-COAG MONITOR BY PHARMACY. MC PRN (15:23)
--- NOTE | 2019-09-19 18:43 | HP ---
ADMIT DATE: 09/18/2019 CHIEF COMPLAINT AND HISTORY OF PRESENT ILLNESS: This 78-year-old white female presented after a fall at home, striking her head. She was weak. In the Emergency Room, had evidence of urinary tract infection, intractable left shoulder and arm pain that has been felt to be due to cervical radiculopathy with her taking prednisone at home over the last couple of weeks, like it is a pain pill whenever she feels the pain, which was ____ directed. PAST MEDICAL HISTORY: Remarkable for COPD, hypothyroidism, atherosclerotic heart disease, GERD, and osteoarthritis. PAST SURGICAL HISTORY: Remarkable for , hysterectomy, and right elbow surgery. MEDICATIONS: Brought with the patient, listed on the computer and have been addressed. ALLERGIES: SHE DESCRIBES RICE AN ALLERGY. SOCIAL HISTORY: Noncontributory. FAMILY HISTORY: Noncontributory. REVIEW OF SYSTEMS: Remarkable for the left shoulder blade, shoulder and arm pain down to the mid forearm, which is intermittently very severe and has had now for quite some time. She otherwise denies any changes in vision, nausea, vomiting, sore throat, diarrhea, hematemesis, hematuria, dysuria, any specific back or joint pain, rash or skin lesions, etc. PHYSICAL EXAMINATION: GENERAL: She is well-developed, well-nourished white female, sitting in bed, eating. VITAL SIGNS: Stable. She is afebrile. HEAD, EYES, EARS, NOSE, AND THROAT: Remarkable for glasses. NECK: Supple without adenopathy or thyromegaly. CHEST: Reveals decreased breath sounds, but clear. HEART: Regular rate and rhythm without S3, S4 or murmur. ABDOMEN: Soft, nontender, without hepatosplenomegaly or masses. EXTREMITIES: Without cyanosis, clubbing, or edema. NEUROLOGIC: She is intact. She does have some bruising on her left side of her face. IMAGING STUDIES: Imaging in the ER included a chest x-ray showing no changes from the time prior and a CT of the head and facial bones showing a possible right anterior mandibular ridge fracture, although clinically I do not think this is the case by examination. IMPRESSION: 1. Fall with weakness, likely due to urinary tract infection. 2. Severe left cervical radiculopathy. 3. Other problems listed above. PLAN: The patient has been admitted. She will be maintained on Rocephin pending urine cultures. Dr. Jaramillo has been asked to see her from a rehab standpoint, and the patient will be monitored, managed, and treated appropriately. MICHAEL NELSON MD DR: CYNTHIA/yue JOB#: [id number] / [id number]
[2019-09-19 19:00] VITALS: BP 113/56
[2019-09-19] MEDS: LACTOBACILLUS RHAMNOSUS GG 1 CAPSULE. PO SCH (20:52)
[2019-09-19] MEDS: DICLOFENAC SODIUM 1% TOPICAL GEL 100GM TUBE. TP PRN (22:01)
[2019-09-19 23:04] VITALS: BP 124/62
[2019-09-20] MEDS: DICLOFENAC SODIUM 1% TOPICAL GEL 100GM TUBE. TP PRN (02:47)
[2019-09-20 03:06] VITALS: BP 140/74
[2019-09-20] MEDS: HYDROcodone/APAP 5/325MG 1 TAB TABLET PO PRN ×3 (03:15→18:49)
[2019-09-20 07:00] VITALS: BP 149/67
[2019-09-20] MEDS: LACTOBACILLUS RHAMNOSUS GG 1 CAPSULE. PO SCH (07:31)
[2019-09-20] MEDS: predniSONE 20 MG TABLET PO SCH (07:32)
[2019-09-20] MEDS: PANTOPRAZOLE 40 MG TABLET.DR. PO SCH (07:32)
[2019-09-20] MEDS: LEVOTHYROXINE 50 MCG TABLET PO SCH (07:32)
[2019-09-20] MEDS: APIXABAN 5 MG TABLET. PO SCH ×2 (07:33→21:00)
[2019-09-20] MEDS: cefTRIAXone IV Push 1 GM VIAL. IVP SCH (10:13)
[2019-09-20 11:00] VITALS: BP 127/61
--- NOTE | 2019-09-20 13:10 | PDOC ---
GENERAL General: vss and afebrile. awake and alert. main complaint today is no bm and would like laxative. cervical radicular pain is intermittent and severe. urine culture negative and will dc rocephin. nursing has given me son's number to contact regarding placement. will await therapy evaluation and continue same plus a laxative. VITAL SIGNS/I&O Vital Signs/I&O: Vital Signs Date Time Temp Pulse Resp B/P (MAP) Pulse Ox O2 Delivery O2 Flow Rate FiO2 09/20/19 13:03 20 92 Nasal Cannula 2.0 09/20/19 11:00 97.8 77 127/61 (83) 97.8 I & O 09/19/19 09/19/19 09/20/19 14:59 22:59 06:59 Intake Total 550 ml Balance 550 ml ALLERGIES Allergies: Allergies Coded Allergies Type Severity Reaction Last Updated Verified rice Allergy Severe 09/27/17 Yes MEDS Medications: Current Medications Medications (Trade) Dose Ordered Sig/Edith Route PRN Reason Start Time Stop Time Status Last Admin Dose Admin Lactobacillus Rhamnosus (Culturelle) 1 cap BID PO 09/19/19 21:00 09/20/19 07:31 Info (Anti-Coagulation Monitoring By Pharmacy) 1 each PRN DAILY PRN MC SEE COMMENTS 09/19/19 15:30 09/19/19 15:23 Diclofenac Sodium (Voltaren) 1 dawit PRN Q4HRS PRN TP Pain 09/19/19 21:30 09/20/19 02:47 Acetaminophen/ Hydrocodone Bitart (Lortab 5/325) 1 tab PRN Q6HRS PRN PO PAIN 09/20/19 11:30 09/20/19 13:03 MICHAEL NELSON MD Sep 20, 2019 13:10
[2019-09-20] MEDS: ANTI-COAG MONITOR BY PHARMACY. MC PRN (14:20)
[2019-09-20 15:00] VITALS: BP 134/59
[2019-09-20] MEDS: BISACODYL 5 MG TABLET.DR. PO PRN (16:03)
[2019-09-20 19:00] VITALS: BP 113/51
[2019-09-20 23:03] VITALS: BP 132/58
[2019-09-21 03:21] VITALS: BP 115/60
[2019-09-21] MEDS: DICLOFENAC SODIUM 1% TOPICAL GEL 100GM TUBE. TP PRN (03:22)
[2019-09-21] MEDS: HYDROcodone/APAP 5/325MG 1 TAB TABLET PO PRN ×3 (03:23→21:45)
[2019-09-21 07:00] VITALS: BP 118/60
[2019-09-21] MEDS: PANTOPRAZOLE 40 MG TABLET.DR. PO SCH (07:30)
[2019-09-21] MEDS: predniSONE 20 MG TABLET PO SCH (08:55)
[2019-09-21] MEDS: LEVOTHYROXINE 50 MCG TABLET PO SCH (08:56)
[2019-09-21] MEDS: APIXABAN 5 MG TABLET. PO SCH ×2 (08:59→21:00)
[2019-09-21] MEDS ORDERED: MAGNESIUM CITRATE 296 ML SOLUTION. PO PRN (09:15)
--- NOTE | 2019-09-21 09:45 | PDOC ---
PROGRESS NOTES Subjective Subjective She admits constipation. Objective Objective Vital Signs Date Time Temp Pulse Resp B/P (MAP) Pulse Ox O2 Delivery O2 Flow Rate FiO2 09/21/19 07:00 97.5 71 18 118/60 (79) 92 Nasal Cannula 2.0 97.5 Intake and Output0 09/21/19 07:00 # Voids 2 Physical Exam Physical Exam She is alert,sitting on bedside commode and she admits upper back pain is under control and she did walk for 30' with roller walker with physical therapy. Assessment Assessment Problems Medical Problems: (1) Frequent falls Status: Acute (2) UTI (urinary tract infection) Status: Acute Plan Plan of Care To SNF when medically stable. Comment Review of Relevant I have reviewed the following items sary (where applicable) has been applied. Labs Microbiology 09/18/19 Urine Culture - Final, Complete 09/18/19 Urine Culture Result 1 (MAGALI) - Final, Complete Medications Current Medications Albuterol/ Ipratropium (Duoneb) 3 ml 1X ONCE NEB Last administered on 09/18/19at 10:08; Start 09/18/19 at 10:30; Stop 09/18/19 at 10:31; Status DC Fentanyl Citrate (Fentanyl 2ml Vial) 50 mcg 1X ONCE IV Last administered on 09/18/19at 10:56; Start 09/18/19 at 10:30; Stop 09/18/19 at 10:31; Status DC Ondansetron HCl (Zofran) 4 mg 1X ONCE IV Last administered on 09/18/19at 10:56; Start 09/18/19 at 10:30; Stop 09/18/19 at 10:31; Status DC Ceftriaxone Sodium (Rocephin) 1 gm 1X ONCE IVP Last administered on 09/18/19at 12:09; Start 09/18/19 at 11:15; Stop 09/18/19 at 11:16; Status DC Fentanyl Citrate (Fentanyl 2ml Vial) 50 mcg 1X ONCE IV Last administered on 09/18/19at 12:09; Start 09/18/19 at 12:15; Stop 09/18/19 at 12:16; Status DC Fentanyl Citrate (Fentanyl 2ml Vial) 50 mcg 1X ONCE IVP Last administered on 09/18/19at 14:05; Start 09/18/19 at 14:00; Stop 09/18/19 at 14:01; Status DC Ceftriaxone Sodium (Rocephin) 1 gm Q24H IVP Last administered on 09/20/19at 10:13; Start 09/19/19 at 11:00; Stop 09/20/19 at 13:12; Status DC Apixaban (Eliquis) 5 mg BID PO ; Start 09/18/19 at 21:00 Diltiazem HCl (Cardizem 24hr Cd) 180 mg DAILY PO ; Start 09/19/19 at 09:00 Acetaminophen/ Hydrocodone Bitart (Lortab 5/325) 1 tab PRN Q8HRS PRN PO PAIN Last administered on 09/20/19at 03:15; Start 09/18/19 at 15:15; Stop 09/20/19 at 11:16; Status DC Levothyroxine Sodium (Synthroid) 50 mcg DAILYAC PO Last administered on 09/21/19at 08:56; Start 09/19/19 at 07:30 Pantoprazole Sodium (Protonix) 40 mg DAILYAC PO Last administered on 09/21/19at 07:30; Start 09/19/19 at 07:30 Prednisone (Prednisone) 20 mg DAILY PO Last administered on 09/21/19at 08:55; Start 09/19/19 at 09:00 Lidocaine (Lidoderm) 1 patch DAILY PRN TD back pain; Start 09/18/19 at 16:00; Stop 09/18/19 at 16:15; Status DC Miscellaneous (Lidoderm Patch Removal) 1 ea QHS PRN MC IF PATCH APPLIED; Start 09/18/19 at 16:15 Lidocaine (Lidoderm) 1 patch DAILY PRN TD back pain; Start 09/18/19 at 16:15 Lactobacillus Rhamnosus (Culturelle) 1 cap BID PO Last administered on at 07:31; Start 09/19/19 at 21:00; Stop 09/20/19 at 14:22; Status DC Info (Anti-Coagulation Monitoring By Pharmacy) 1 each PRN DAILY PRN MC SEE COMMENTS Last administered on 09/20/19at 14:20; Start 09/19/19 at 15:30 Diclofenac Sodium (Voltaren) 1 dawti PRN Q4HRS PRN TP Pain Last administered on 09/21/19at 03:22; Start 09/19/19 at 21:30 Acetaminophen/ Hydrocodone Bitart (Lortab 5/325) 1 tab PRN Q6HRS PRN PO PAIN Last administered on 09/21/19at 03:23; Start 09/20/19 at 11:30 Bisacodyl (Dulcolax Tab) 5 mg PRN DAILY PRN PO CONSTIPATION Last administered on 09/20/19at 16:03; Start 09/20/19 at 13:15 Magnesium Citrate (Citroma) 150 ml PRN 1X PRN PO CONSTIPATION Last administered on 09/21/19at 09:30; Start 09/21/19 at 09:15 Active Scripts Active Orphenadrine Citrate 100 Mg Tablet.er 100 Mg PO BID Naproxen 375 Mg Tablet 375 Mg PO TID PRN Lidocaine PATCH (Lidocaine) 1 Each Adh..patch 1 Patch TD DAILY PRN Polyethylene Glycol 3350 17 Gm Powd.pack 17 Gm PO BID Pantoprazole Sodium (Pantoprazole Sodium) 40 Mg Tablet.dr 40 Mg PO DAILYAC Hydrocodone-Apap 5-325 (Hydrocodone Bit/Acetaminophen) 1 Each Tablet 1 Tab PO PRN Q8HRS PRN Reported Prednisone 20 Mg Tablet 20 Mg PO DAILY Eliquis (Apixaban) 5 Mg Tablet 5 Mg PO BID Diltiazem 24HR Cd (Diltiazem Hcl) 180 Mg Cap.er.24h 180 Mg PO DAILY Levothyroxine Sodium 50 Mcg Tablet 50 Mcg PO DAILYAC Vitals/I & O Vital Sign - Last 24 Hours 09/20/19 09/20/19 09/20/19 09/20/19 11:00 13:03 14:03 15:00 Temp 97.8 97.5 97.8 97.5 Pulse 77 72 Resp 16 20 20 16 B/P (MAP) 127/61 (83) 134/59 (84) Pulse Ox 92 92 95 95 O2 Delivery Nasal Cannula Nasal Cannula Nasal Cannula Nasal Cannula O2 Flow Rate 2.0 2.0 2.0 2.0 09/20/19 09/20/19 09/20/19 09/20/19 18:49 19:00 20:30 21:31 Temp 98.3 98.3 Pulse 70 Resp 18 20 B/P (MAP) 113/51 (71) Pulse Ox 95 97 97 O2 Delivery Nasal Cannula Nasal Cannula Nasal Cannula Nasal Cannula O2 Flow Rate 2.0 2.0 2.0 09/20/19 09/21/19 09/21/19 09/21/19 23:03 03:21 03:23 04:37 Temp 98.2 98.4 98.2 98.4 Pulse 68 61 Resp 20 18 B/P (MAP) 132/58 (82) 115/60 (78) Pulse Ox 94 94 O2 Delivery Nasal Cannula Nasal Cannula Nasal Cannula Nasal Cannula O2 Flow Rate 2.0 2.0 09/21/19 07:00 Temp 97.5 97.5 Pulse 71 Resp 18 B/P (MAP) 118/60 (79) Pulse Ox 92 O2 Delivery Nasal Cannula O2 Flow Rate 2.0 ADÁN ESQUIVEL MD Sep 21, 2019 09:45
[2019-09-21 11:00] VITALS: BP 108/50
--- NOTE | 2019-09-21 14:37 | PDOC ---
GENERAL General: vss and afebrile. awake and alert. still with intermittent pain left shoulder a nd arm cw cervical radiculopathy. for ct cervical spine today. exam stable. will get snu for [facility]. VITAL SIGNS/I&O Vital Signs/I&O: Vital Signs Date Time Temp Pulse Resp B/P (MAP) Pulse Ox O2 Delivery O2 Flow Rate FiO2 09/21/19 13:39 Nasal Cannula 2.0 09/21/19 11:00 97.6 77 18 108/50 (24) 90 97.6 ALLERGIES Allergies: Allergies Coded Allergies Type Severity Reaction Last Updated Verified rice Allergy Severe 09/27/17 Yes MEDS Medications: Current Medications Medications (Trade) Dose Ordered Sig/Edith Route PRN Reason Start Time Stop Time Status Last Admin Dose Admin Magnesium Citrate (Citroma) 150 ml PRN 1X PRN PO CONSTIPATION 09/21/19 09:15 09/21/19 09:30 MICHAEL NELSON MD Sep 21, 2019 14:37
[2019-09-21 15:00] VITALS: BP 137/68
--- NOTE | 2019-09-21 15:12 | NUR ---
SW following for discharge planning. Chart reviewed, discussed with RN. SW responded to referral of pt's son requesting placement for pt. SW contacted pt's son, Jason ([phone]), he would like for pt to go to SNU at [facility] and then transition into care home care if possible. Per Jason, pt already has medicaid pending. Jason reported he visited [facility] this morning. SW attempted to meet with pt regarding SNU, however pt was out of the room having an MRI. Per RN, pt agreeable to SNU and the decision of where would be on her son, Jason. SW will attempt to meet with pt again. Referral sent to [facility] (ph: [phone], fax: [phone]). SW awaiting acceptance decision. RN notified.
--- NOTE | 2019-09-21 15:40 | RAD ---
EXAMINATION: Magnetic resonance imaging (MRI) of the cervical spine without contrast 09/21/2019 5:36 PM HISTORY: Chronic neck pain with left cervical radiculopathy TECHNIQUE: Multiplanar multi-weighted MRI of the cervical spine was performed without intravenous contrast using the standard cervical spine protocol. Contrast information: None administered COMPARISON: None available. FINDINGS: There is exaggerated lordosis of the cervical spine without significant spondylolisthesis. T1 signal hypointensity suggestive of marrow replacing process noted at T1, T2, T3, T4, T5 and T6. There is suggestion of epidural involvement at T1-T6, only partially profiled and limited in evaluation. Signal alteration involving the sternum is suggestive of osseous metastatic disease. No acute fracture is identified; however, if trauma is suspected, a CT scan would be a more sensitive examination for fractures. The craniocervical junction is normal. The visualized portions of the skull base and the posterior fossa are normal. The spinal cord demonstrates normal signal intensity on all sequences. Mild disc height loss at C5-C6. No soft tissue abnormality is identified. Normal signal voids are present in the vertebral arteries. C2-C3: Mild disc bulge. There is no facet arthropathy. There is no uncovertebral joint disease. There is no neuroforaminal stenosis. There is no spinal canal stenosis. C3-C4: Mild disc bulge. There is no facet arthropathy. There is no uncovertebral joint disease. There is no neuroforaminal stenosis. There is no spinal canal stenosis. C4-C5: The disk is normal in configuration. There is no facet arthropathy. There is no uncovertebral joint disease. There is no neuroforaminal stenosis. There is no spinal canal stenosis. C5-C6: There is posterior disc osteophyte complex. There is mild to moderate facet arthropathy. There is mild uncovertebral joint disease. There is no neuroforaminal stenosis. There is no spinal canal stenosis. C6-C7: There is a posterior disc osteophyte complex. There is moderate facet arthropathy. There is no uncovertebral joint disease. There is no neuroforaminal stenosis. There is no spinal canal stenosis. There is segmental flavum infolding. C7-T1: The disk is normal in configuration. There is epidural soft tissue abnormality in the left ventral epidural space extending left laterally, incompletely profiled. No significant spinal canal stenosis. There is likely left neuroforaminal stenosis. IMPRESSION: 1. There are findings indicative of osseous metastatic disease involving the visualized thoracic spine with possible epidural involvement, not completely profiled on this examination. MRI of the thoracic spine and lumbar spine area of benefit for further evaluation. 2. There is suspicion of sternal osseous metastatic disease. Correlate with any prior mammogram. Staging study with CT chest, abdomen and pelvis may be of benefit. 3. No significant disc herniation, neuroforaminal or spinal canal stenosis. Electronically signed by: Nicol Reyes MD (09/21/2019 3:37 PM) [id number]
[2019-09-21 19:00] VITALS: BP 116/61
[2019-09-21] MEDS: BISACODYL 5 MG TABLET.DR. PO PRN (21:52)
[2019-09-21 23:00] VITALS: BP 113/56
[2019-09-22 03:00] VITALS: BP 118/54
[2019-09-22 07:00] VITALS: BP 162/60
[2019-09-22] MEDS: predniSONE 20 MG TABLET PO SCH (08:27)
[2019-09-22] MEDS: LEVOTHYROXINE 50 MCG TABLET PO SCH (08:27)
[2019-09-22] MEDS: PANTOPRAZOLE 40 MG TABLET.DR. PO SCH (08:27)
[2019-09-22] MEDS: HYDROcodone/APAP 5/325MG 1 TAB TABLET PO PRN ×2 (08:30→20:36)
[2019-09-22] MEDS: APIXABAN 5 MG TABLET. PO SCH ×2 (08:35→20:36)
--- NOTE | 2019-09-22 09:17 | PDOC ---
PROGRESS NOTES Subjective Subjective No new complaints. Objective Objective Vital Signs Date Time Temp Pulse Resp B/P (MAP) Pulse Ox O2 Delivery O2 Flow Rate FiO2 09/22/19 07:00 98.0 72 16 162/60 (94) 95 Room Air 98.0 09/22/19 03:00 2.0 Intake and Output 09/22/19 07:00 Intake Total 250 ml Output Total 500 ml Balance -250 ml Intake Oral 250 ml Output Urine Total 500 ml # Voids 5 # Bowel Movements 1 Physical Exam Physical Exam She is sitting in bedside chair and does not seem to be in any distress. Mri scan of cervical vertebrae revealed bone marrow changes suggestive of metastatic disease. Assessment Assessment Problems Medical Problems: (1) Frequent falls Status: Acute (2) UTI (urinary tract infection) Status: Acute Plan Plan of Care Agree with ;scooby plans. Comment Review of Relevant I have reviewed the following items sary (where applicable) has been applied. Labs Microbiology 09/18/19 Urine Culture - Final, Complete 09/18/19 Urine Culture Result 1 (MAGALI) - Final, Complete Medications Current Medications Albuterol/ Ipratropium (Duoneb) 3 ml 1X ONCE NEB Last administered on 09/18/19at 10:08; Start 09/18/19 at 10:30; Stop 09/18/19 at 10:31; Status DC Fentanyl Citrate (Fentanyl 2ml Vial) 50 mcg 1X ONCE IV Last administered on 09/18/19at 10:56; Start 09/18/19 at 10:30; Stop 09/18/19 at 10:31; Status DC Ondansetron HCl (Zofran) 4 mg 1X ONCE IV Last administered on 09/18/19at 10:56; Start 09/18/19 at 10:30; Stop 09/18/19 at 10:31; Status DC Ceftriaxone Sodium (Rocephin) 1 gm 1X ONCE IVP Last administered on 09/18/19at 12:09; Start 09/18/19 at 11:15; Stop 09/18/19 at 11:16; Status DC Fentanyl Citrate (Fentanyl 2ml Vial) 50 mcg 1X ONCE IV Last administered on 09/18/19at 12:09; Start 09/18/19 at 12:15; Stop 09/18/19 at 12:16; Status DC Fentanyl Citrate (Fentanyl 2ml Vial) 50 mcg 1X ONCE IVP Last administered on 09/18/19at 14:05; Start 09/18/19 at 14:00; Stop 09/18/19 at 14:01; Status DC Ceftriaxone Sodium (Rocephin) 1 gm Q24H IVP Last administered on 09/20/19at 10:13; Start 09/19/19 at 11:00; Stop 09/20/19 at 13:12; Status DC Apixaban (Eliquis) 5 mg BID PO ; Start 09/18/19 at 21:00 Diltiazem HCl (Cardizem 24hr Cd) 180 mg DAILY PO ; Start 09/19/19 at 09:00 Acetaminophen/ Hydrocodone Bitart (Lortab 5/325) 1 tab PRN Q8HRS PRN PO PAIN Last administered on 09/20/19at 03:15; Start 09/18/19 at 15:15; Stop 09/20/19 at 11:16; Status DC Levothyroxine Sodium (Synthroid) 50 mcg DAILYAC PO Last administered on 09/22/19at 08:27; Start 09/19/19 at 07:30 Pantoprazole Sodium (Protonix) 40 mg DAILYAC PO Last administered on 09/22/19at 08:27; Start 09/19/19 at 07:30 Prednisone (Prednisone) 20 mg DAILY PO Last administered on 09/22/19at 08:27; Start 09/19/19 at 09:00 Lidocaine (Lidoderm) 1 patch DAILY PRN TD back pain; Start 09/18/19 at 16:00; Stop 09/18/19 at 16:15; Status DC Miscellaneous (Lidoderm Patch Removal) 1 ea QHS PRN MC IF PATCH APPLIED; Start 09/18/19 at 16:15 Lidocaine (Lidoderm) 1 patch DAILY PRN TD back pain; Start 09/18/19 at 16:15 Lactobacillus Rhamnosus (Culturelle) 1 cap BID PO Last administered on 09/20/19at 07:31; Start 09/19/19 at 21:00; Stop 09/20/19 at 14:22; Status DC Info (Anti-Coagulation Monitoring By Pharmacy) 1 each PRN DAILY PRN MC SEE COMMENTS Last administered on 09/20/19at 14:20; Start 09/19/19 at 15:30 Diclofenac Sodium (Voltaren) 1 dawit PRN Q4HRS PRN TP Pain Last administered on 09/21/19at 03:22; Start 09/19/19 at 21:30 Acetaminophen/ Hydrocodone Bitart (Lortab 5/325) 1 tab PRN Q6HRS PRN PO PAIN Last administered on 09/22/19 08:30; Start 09/20/19 at 11:30 Bisacodyl (Dulcolax Tab) 5 mg PRN DAILY PRN PO CONSTIPATION Last administered on 09/21/19at 21:52; Start 09/20/19 at 13:15 Magnesium Citrate (Citroma) 150 ml PRN 1X PRN PO CONSTIPATION Last administered on 09/21/19 09:30; Start 09/21/19 at 09:15 Active Scripts Active Orphenadrine Citrate 100 Mg Tablet.er 100 Mg PO BID Naproxen 375 Mg Tablet 375 Mg PO TID PRN Lidocaine PATCH (Lidocaine) 1 Each Adh..patch 1 Patch TD DAILY PRN Polyethylene Glycol 3350 17 Gm Powd.pack 17 Gm PO BID Pantoprazole Sodium (Pantoprazole Sodium) 40 Mg Tablet.dr 40 Mg PO DAILYAC Hydrocodone-Apap 5-325 (Hydrocodone Bit/Acetaminophen) 1 Each Tablet 1 Tab PO PRN Q8HRS PRN Reported Prednisone 20 Mg Tablet 20 Mg PO DAILY Eliquis (Apixaban) 5 Mg Tablet 5 Mg PO BID Diltiazem 24HR Cd (Diltiazem Hcl) 180 Mg Cap.er.24h 180 Mg PO DAILY Levothyroxine Sodium 50 Mcg Tablet 50 Mcg PO DAILYAC Vitals/I & O Vital Sign - Last 24 Hours 09/21/19 09/21/19 09/21/19 09/21/19 11:00 13:39 15:00 19:00 Temp 97.6 97.3 97.8 97.6 97.3 97.8 Pulse 77 75 79 Resp 18 18 1 B/P (MAP) 108/50 (69) 137/68 (91) 116/61 (79) Pulse Ox 90 91 90 O2 Delivery Nasal Cannula Nasal Cannula Nasal Cannula Nasal Cannula O2 Flow Rate 2.0 2.0 2.0 2.0 09/21/19 09/21/19 09/21/19 09/21/19 20:15 21:45 22:45 23:00 Temp 97.9 97.9 Pulse 73 Resp 20 20 18 B/P (MAP) 113/56 (75) Pulse Ox 91 O2 Delivery Nasal Cannula Room Air Nasal Cannula Nasal Cannula O2 Flow Rate 2.0 2.0 09/22/19 09/22/19 03:00 07:00 Temp 97.5 98.0 97.5 98.0 Pulse 73 72 Resp 18 16 B/P (MAP) 118/54 (75) 162/60 (94) Pulse Ox 94 95 O2 Delivery Nasal Cannula Room Air O2 Flow Rate 2.0 Intake and Output 09/21/19 09/21/19 09/22/19 15:00 23:00 07:00 Intake Total 250 ml Output Total 500 ml Balance -250 ml ADÁN ESQUIVEL MD Sep 22, 2019 09:17
[2019-09-22 11:00] VITALS: BP 111/52
[2019-09-22 15:00] VITALS: BP 130/63
--- NOTE | 2019-09-22 16:47 | NUR ---
LENA following pt. Pt has been accepted at [facility]. SW assisted pt in completing AD. Copy placed on chart. Discussed with RN.
--- NOTE | 2019-09-22 18:13 | PDOC ---
GENERAL General: vss and afebrile. relatively comfortable at time of my exam. exam stable. MRI c ervical spine with metastatic disease of unknown primary. asked nursing to call oncology early this am to evaluate for same. continue pain control. VITAL SIGNS/I&O Vital Signs/I&O: Vital Signs Date Time Temp Pulse Resp B/P (MAP) Pulse Ox O2 Delivery O2 Flow Rate FiO2 09/22/19 15:00 97.9 79 16 130/63 (85) 91 Nasal Cannula 2.0 97.9 I & O 09/21/19 09/21/19 09/22/19 15:00 23:00 07:00 Intake Total 250 ml Output Total 500 ml Balance -250 ml ALLERGIES Allergies: Allergies Coded Allergies Type Severity Reaction Last Updated Verified rice Allergy Severe 09/27/17 Yes MICHAEL NELSON MD Sep 22, 2019 18:13
[2019-09-22 19:00] VITALS: BP 114/55
[2019-09-22 23:00] VITALS: BP 114/46
[2019-09-23 03:00] VITALS: BP 130/59
[2019-09-23] MEDS: HYDROcodone/APAP 5/325MG 1 TAB TABLET PO PRN ×2 (04:05→20:27)
[2019-09-23 07:00] VITALS: BP 156/81
[2019-09-23] MEDS: LEVOTHYROXINE 50 MCG TABLET PO SCH (08:29)
[2019-09-23] MEDS: PANTOPRAZOLE 40 MG TABLET.DR. PO SCH (08:30)
[2019-09-23] MEDS: APIXABAN 5 MG TABLET. PO SCH ×2 (08:30→20:30)
[2019-09-23] MEDS: predniSONE 20 MG TABLET PO SCH (08:30)
--- NOTE | 2019-09-23 09:13 | PDOC ---
PROGRESS NOTES Subjective Subjective She admits continues left shoulder blade area pain. Objective Objective Vital Signs Date Time Temp Pulse Resp B/P (MAP) Pulse Ox O2 Delivery O2 Flow Rate FiO2 09/23/19 08:29 82 156/81 09/23/19 07:00 96.2 16 91 Nasal Cannula 2.0 96.2 Intake and Output 09/23/19 07:00 # Voids 4 # Bowel Movements 1 Physical Exam Physical Exam She is alert,sitting in bed with head end elevated and she did walk for 100' with roller walker with physical therapy. Assessment Assessment Problems Medical Problems: (1) Frequent falls Status: Acute (2) UTI (urinary tract infection) Status: Acute Plan Plan of Care Awaiting oncology advise. Comment Review of Relevant I have reviewed the following items sary (where applicable) has been applied. Labs Microbiology 09/18/19 Urine Culture - Final, Complete 09/18/19 Urine Culture Result 1 (MAGALI) - Final, Complete Medications Current Medications Albuterol/ Ipratropium (Duoneb) 3 ml 1X ONCE NEB Last administered on 09/18/19at 10:08; Start 09/18/19 at 10:30; Stop 09/18/19 at 10:31; Status DC Fentanyl Citrate (Fentanyl 2ml Vial) 50 mcg 1X ONCE IV Last administered on 09/18/19at 10:56; Start 09/18/19 at 10:30; Stop 09/18/19 at 10:31; Status DC Ondansetron HCl (Zofran) 4 mg 1X ONCE IV Last administered on 09/18/19at 10:56; Start 09/18/19 at 10:30; Stop 09/18/19 at 10:31; Status DC Ceftriaxone Sodium (Rocephin) 1 gm 1X ONCE IVP Last administered on 09/18/19at 12:09; Start 09/18/19 at 11:15; Stop 09/18/19 at 11:16; Status DC Fentanyl Citrate (Fentanyl 2ml Vial) 50 mcg 1X ONCE IV Last administered on 09/18/19at 12:09; Start 09/18/19 at 12:15; Stop 09/18/19 at 12:16; Status DC Fentanyl Citrate (Fentanyl 2ml Vial) 50 mcg 1X ONCE IVP Last administered on 09/18/19at 14:05; Start 09/18/19 at 14:00; Stop 09/18/19 at 14:01; Status DC Ceftriaxone Sodium (Rocephin) 1 gm Q24H IVP Last administered on 09/20/19at 10:13; Start 09/19/19 at 11:00; Stop 09/20/19 at 13:12; Status DC Apixaban (Eliquis) 5 mg BID PO Last administered on 09/23/19 08:30; Start 09/18/19 at 21:00 Diltiazem HCl (Cardizem 24hr Cd) 180 mg DAILY PO Last administered on 09/23/19at 08:29; Start 09/19/19 at 09:00 Acetaminophen/ Hydrocodone Bitart (Lortab 5/325) 1 tab PRN Q8HRS PRN PO PAIN Last administered on 09/20/19 03:15; Start 09/18/19 at 15:15; Stop 09/20/19 at 11:16; Status DC Levothyroxine Sodium (Synthroid) 50 mcg DAILYAC PO Last administered on 09/23/19at 08:29; Start 09/19/19 at 07:30 Pantoprazole Sodium (Protonix) 40 mg DAILYAC PO Last administered on 09/23/19 08:30; Start 09/19/19 at 07:30 Prednisone (Prednisone) 20 mg DAILY PO Last administered on 09/23/19at 08:30; Start 09/19/19 at 09:00 Lidocaine (Lidoderm) 1 patch DAILY PRN TD back pain; Start 09/18/19 at 16:00; Stop 09/18/19 at 16:15; Status DC Miscellaneous (Lidoderm Patch Removal) 1 ea QHS PRN MC IF PATCH APPLIED; Start 09/18/19 at 16:15 Lidocaine (Lidoderm) 1 patch DAILY PRN TD back pain; Start 09/18/19 at 16:15 Lactobacillus Rhamnosus (Culturelle) 1 cap BID PO Last administered on 09/20/19at 07:31; Start 09/19/19 at 21:00; Stop 09/20/19 at 14:22; Status DC Info (Anti-Coagulation Monitoring By Pharmacy) 1 each PRN DAILY PRN MC SEE C OMMENTS Last administered on 09/20/19at 14:20; Start 09/19/19 at 15:30 Diclofenac Sodium (Voltaren) 1 dawit PRN Q4HRS PRN TP Pain Last administered on 09/21/19 03:22; Start 09/19/19 at 21:30 Acetaminophen/ Hydrocodone Bitart (Lortab 5/325) 1 tab PRN Q6HRS PRN PO PAIN Last administered on 09/23/19 04:05; Start 09/20/19 at 11:30 Bisacodyl (Dulcolax Tab) 5 mg PRN DAILY PRN PO CONSTIPATION,1ST CHOICE Last administered on 09/21/19 21:52; Start 09/20/19 at 13:15 Magnesium Citrate (Citroma) 150 ml PRN 1X PRN PO CONSTIPATION, 2ND CHOICE Last administered on 09/21/19 09:30; Start 09/21/19 at 09:15 Active Scripts Active Orphenadrine Citrate 100 Mg Tablet.er 100 Mg PO BID Naproxen 375 Mg Tablet 375 Mg PO TID PRN Lidocaine PATCH (Lidocaine) 1 Each Adh..patch 1 Patch TD DAILY PRN Polyethylene Glycol 3350 17 Gm Powd.pack 17 Gm PO BID Pantoprazole Sodium (Pantoprazole Sodium) 40 Mg Tablet.dr 40 Mg PO DAILYAC Hydrocodone-Apap 5-325 (Hydrocodone Bit/Acetaminophen) 1 Each Tablet 1 Tab PO PRN Q8HRS PRN Reported Prednisone 20 Mg Tablet 20 Mg PO DAILY Eliquis (Apixaban) 5 Mg Tablet 5 Mg PO BID Diltiazem 24HR Cd (Diltiazem Hcl) 180 Mg Cap.er.24h 180 Mg PO DAILY Levothyroxine Sodium 50 Mcg Tablet 50 Mcg PO DAILYAC Vitals/I & O Vital Sign - Last 24 Hours 09/22/19 09/22/19 09/22/19 09/22/19 11:00 11:00 15:00 19:00 Temp 98.1 97.9 97.4 98.1 97.9 97.4 Pulse 71 79 69 Resp 16 16 16 B/P (MAP) 111/52 (71) 130/63 (85) 114/55 (74) Pulse Ox 91 91 93 O2 Delivery Room Air Nasal Cannula Nasal Cannula Nasal Cannula O2 Flow Rate 2.0 2.0 2.0 09/22/19 09/22/19 09/22/19 09/22/19 20:00 20:36 21:40 23:00 Temp 97.5 97.5 Pulse 59 Resp 16 16 B/P (MAP) 114/46 (68) Pulse Ox 91 91 92 O2 Delivery Nasal Cannula Nasal Cannula Nasal Cannula Nasal Cannula O2 Flow Rate 2.0 2.0 2.0 2.0 09/23/19 09/23/19 09/23/19 09/23/19 03:00 04:05 05:21 07:00 Temp 96.2 96.2 96.2 96.2 Pulse 60 82 Resp 16 16 16 16 B/P (MAP) 130/59 (82) 156/81 (106) Pulse Ox 91 91 91 91 O2 Delivery Nasal Cannula Nasal Cannula Nasal Cannula Nasal Cannula O2 Flow Rate 2.0 2.0 2.0 2.0 09/23/19 08:29 Pulse 82 B/P (MAP) 156/81 ADÁN ESQUIVEL MD Sep 23, 2019 09:13
--- NOTE | 2019-09-23 09:36 | PDOC2 ---
CONSULT Date of Consult Date of Consult DATE: 09/23/19 TIME: 09:23 Reason for consultation: Concern for osseous metastatic disease Consult: Hematology oncology, Dr. Philip Camargo History of present illness: she is a 78-year-old smoker with pain in her left "quadrant" she states which includes her shoulder and scapular area and anterior chest extending down her arm, chronic, severe, improved with pain pills, and worsened due to underlying osseous metastatic disease seen on imaging. Past medical history: [place] COPD Noncompliant with home oxygen per report Hypothyroid Atherosclerotic vascular disease GERD Osteoarthritis History of A. 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, alcohol in the past but none recently, smoked since she was 17 Family history: Mom with potassium problems, COPD, brother with bone cancer Review of systems: Sweats at night, this is common for her, weight fluctuates, edema drinking milk, pain at her left shoulder and back and chest region extending to arm, some thoracic spine pain wrapping around her back, numbness and tingling at her left upper extremity, left wrist weakness, otherwise denies 10 point current review of systems Physical exam: Vitals reviewed Gen.: thin elderly female in no acute distress, feisty HEENT: mucous membranes moist, head normocephalic atraumatic other than bruise at L mandible Neck: Supple, no lymphadenopathy, generous submand but do not seem pathologic Lymph nodes: No palpable pathologic lymphadenopathy neck or axilla Lungs: Breathing comfortably w/o respiratory distress Abdomen: Soft, nontender, nondistended Extremities: No cyanosis or signif edema Skin: No obvious rashes or skin breakdown, noted bruise Neuro: Alert and oriented 3 Psych: pleasant mood and affect Lab reviewed: White count 8.2, hemoglobin 13.3, platelets 282 PTT normal INR 1.0 Urinalysis with moderate leukoesterase, Alimta 20 white blood cells but culture negative Creatinine 0.8 Lactic acid 1.1 Rads reviewed: Chest x-ray with bilateral perihilar lung airspace opacities C-spine MRI with osseous metastatic disease at T-spine with possible epidural involvement, sternal osseous metastatic disease Head CT with ventriculomegaly, 2 mm right mandible anterior fracture? Case discussed with: Patient, records reviewed in [facility] and the medical center, including labs and radiology, please see note for summary details. Assessment and Plan: Is a 78-year-old female smoker with concern for osseous metastatic disease and possible epidural involvement? Having some T-spine pain as well as left upper shoulder/chest/back region radiating to the left upper extremity with some radicular motor and sensory findings, she has declined all prior cancer workup but is willing however to let us pursue further imaging. Offered further MRIs last night but she preferred to do them today. -Check T and L-spine MRI and CT chest abdomen and pelvis for suspected bony metastasis -We'll follow-up afterwards for further recommendations -Possible right mandible fracture: Left mandible bruising, no pain in the area, defer to primary -On anticoagulation: I believe this is for a history of A. fib. -Highly recommend complete smoking cessation, do not believe she is interested at this point in time Thank you kindly for this consultation, I am available in the interim for questions before returning Saturday morning, please don't hesitate to call with further questions. Past Medical History Pulmonary: Bronchitis, COPD Psych: Anxiety Past Surgical History Past Surgical History: Hysterectomy Social History ALCOHOL: none Drugs: None Current Problem List Problem List Problems Medical Problems: (1) Frequent falls Status: Acute (2) UTI (urinary tract infection) Status: Acute Current Medications Current Medications Current Medications Albuterol/ Ipratropium (Duoneb) 3 ml 1X ONCE NEB Last administered on 09/18/19at 10:08; Start 09/18/19 at 10:30; Stop 09/18/19 at 10:31; Status DC Fentanyl Citrate (Fentanyl 2ml Vial) 50 mcg 1X ONCE IV Last administered on 09/18/19at 10:56; Start 09/18/19 at 10:30; Stop 09/18/19 at 10:31; Status DC Ondansetron HCl (Zofran) 4 mg 1X ONCE IV Last administered on 09/18/19at 10:56; Start 09/18/19 at 10:30; Stop 09/18/19 at 10:31; Status DC Ceftriaxone Sodium (Rocephin) 1 gm 1X ONCE IVP Last administered on 09/18/19at 12:09; Start 09/18/19 at 11:15; Stop 09/18/19 at 11:16; Status DC Fentanyl Citrate (Fentanyl 2ml Vial) 50 mcg 1X ONCE IV Last administered on 09/18/19at 12:09; Start 09/18/19 at 12:15; Stop 09/18/19 at 12:16; Status DC Fentanyl Citrate (Fentanyl 2ml Vial) 50 mcg 1X ONCE IVP Last administered on 09/18/19at 14:05; Start 09/18/19 at 14:00; Stop 09/18/19 at 14:01; Status DC Ceftriaxone Sodium (Rocephin) 1 gm Q24H IVP Last administered on 09/20/19at 10:13; Start 09/19/19 at 11:00; Stop 09/20/19 at 13:12; Status DC Apixaban (Eliquis) 5 mg BID PO Last administered on 09/23/19at 08:30; Start 09/18/19 at 21:00 Diltiazem HCl (Cardizem 24hr Cd) 180 mg DAILY PO Last administered on 09/23/19at 08:29; Start 09/19/19 at 09:00 Acetaminophen/ Hydrocodone Bitart (Lortab 5/325) 1 tab PRN Q8HRS PRN PO PAIN Last administered on 09/20/19at 03:15; Start 09/18/19 at 15:15; Stop 09/20/19 at 11:16; Status DC Levothyroxine Sodium (Synthroid) 50 mcg DAILYAC PO Last administered on 09/23/19at 08:29; Start 09/19/19 at 07:30 Pantoprazole Sodium (Protonix) 40 mg DAILYAC PO Last administered on 09/23/19at 08:30; Start 09/19/19 at 07:30 Prednisone (Prednisone) 20 mg DAILY PO Last administered on 09/23/19at 08:30; Start 09/19/19 at 09:00 Lidocaine (Lidoderm) 1 patch DAILY PRN TD back pain; Start 09/18/19 at 16:00; Stop 09/18/19 at 16:15; Status DC Miscellaneous (Lidoderm Patch Removal) 1 ea QHS PRN MC IF PATCH APPLIED; Start 09/18/19 at 16:15 Lidocaine (Lidoderm) 1 patch DAILY PRN TD back pain; Start 09/18/19 at 16:15 Lactobacillus Rhamnosus (Culturelle) 1 cap BID PO Last administered on at 07:31; Start 09/19/19 at 21:00; Stop 09/20/19 at 14:22; Status DC Info (Anti-Coagulation Monitoring By Pharmacy) 1 each PRN DAILY PRN MC SEE COMMENTS Last administered on 09/20/19at 14:20; Start 09/19/19 at 15:30 Diclofenac Sodium (Voltaren) 1 dawit PRN Q4HRS PRN TP Pain Last administered on 09/21/19 03:22; Start 09/19/19 at 21:30 Acetaminophen/ Hydrocodone Bitart (Lortab 5/325) 1 tab PRN Q6HRS PRN PO PAIN Last administered on 09/23/19 04:05; Start 09/20/19 at 11:30 Bisacodyl (Dulcolax Tab) 5 mg PRN DAILY PRN PO CONSTIPATION,1ST CHOICE Last administered on 09/21/19at 21:52; Start 09/20/19 at 13:15 Magnesium Citrate (Citroma) 150 ml PRN 1X PRN PO CONSTIPATION, 2ND CHOICE Last administered on 09/21/19 09:30; Start 09/21/19 at 09:15 Active Scripts Active Orphenadrine Citrate 100 Mg Tablet.er 100 Mg PO BID Naproxen 375 Mg Tablet 375 Mg PO TID PRN Lidocaine PATCH (Lidocaine) 1 Each Adh..patch 1 Patch TD DAILY PRN Polyethylene Glycol 3350 17 Gm Powd.pack 17 Gm PO BID Pantoprazole Sodium (Pantoprazole Sodium) 40 Mg Tablet.dr 40 Mg PO DAILYAC Hydrocodone-Apap 5-325 (Hydrocodone Bit/Acetaminophen) 1 Each Tablet 1 Tab PO PRN Q8HRS PRN Reported Prednisone 20 Mg Tablet 20 Mg PO DAILY Eliquis (Apixaban) 5 Mg Tablet 5 Mg PO BID Diltiazem 24HR Cd (Diltiazem Hcl) 180 Mg Cap.er.24h 180 Mg PO DAILY Levothyroxine Sodium 50 Mcg Tablet 50 Mcg PO DAILYAC Allergies Allergies: Coded Allergies: rice (Verified Allergy, Severe, 09/27/17) PT REPORTS GOING TO THE ER FOR RICE POISIONING IN THE PAST Vitals VITALS Vital Signs Date Time Temp Pulse Resp B/P (MAP) Pulse Ox O2 Delivery O2 Flow Rate FiO2 09/23/19 08:29 82 156/81 09/23/19 07:00 96.2 16 91 Nasal Cannula 2.0 96.2 PHILIP CAMARGO MD Sep 23, 2019 09:36
[2019-09-23] MEDS ORDERED: IOHEXOL 240 MG/ML 50ML VIAL. PO ONE (10:30)
[2019-09-23] MEDS ORDERED: IOHEXOL 300 MG/ML 100ML VIAL. IV ONE (10:30)
[2019-09-23] MEDS ORDERED: CONTRAST GIVEN. MC PRN (10:45)
[2019-09-23 11:00] VITALS: BP 133/53
--- NOTE | 2019-09-23 12:20 | NUR ---
SW following. Discussed with RN, pt is accepted at [facility] (ph: [phone], fax: [phone]). Oncology has been consulted. CT of abdo/pelvis done today, and possibly another MRI. SW awaiting further discharge information.
[2019-09-23 15:00] VITALS: BP 141/60
--- NOTE | 2019-09-23 17:15 | RAD ---
EXAM: CT OF THE CHEST, ABDOMEN AND PELVIS WITH CONTRAST. HISTORY: Metastatic malignancy. TECHNIQUE: Computed tomography of the chest, abdomen and pelvis was performed after the intravenous administration of iodinated contrast. COMPARISON: 09/25/2017. FINDINGS: Bone windows reveal extensive sclerotic metastatic disease throughout the thoracic and lumbar spine. There is a mild inferior endplate pathologic compression fracture at L3 without retropulsion. Large lesions involve the sternal body and manubrium. The majority of the right hemipelvis, sacrum and small regions of the left hemipelvis are also involved. There is a small lesion in the right intertrochanteric femur. No clear breast mass is appreciated in this [id number]. A soft tissue nodule within the posterior mediastinum superiorly may represent a prominent lymph node measuring 16 x 8 mm. There are no enlarged axillary or mediastinal lymph nodes elsewhere. A prominent right inferior hilar node measures 14 x 9 mm. There is a moderate hiatal hernia. There are trace bilateral pleural effusions. There is no pericardial effusion. There are dense calcifications of the aortic valve. The heart is mildly enlarged. The main pulmonary artery measures 3.4 cm. No pulmonary emboli are identified. Multiple pulmonary nodules are consistent with metastatic disease. The largest is adjacent to the pleura in the left upper lobe and measures 1.7 x 2.0 cm. A component of pleural invasion is suspected. Multiple other nodules on the left greater than right measure up to 1.5 cm. There is moderate centrilobular emphysema. One left rib lesion has an associated soft tissue mass that indents the pleura mildly. A left renal cyst measures 11 mm. The pancreas, adrenal glands, spleen, gallbladder, liver and right kidney are unremarkable. Small retroperitoneal lymph nodes are not pathologically enlarged. A clear colonic mass is not identified. The uterus and ovaries are surgically absent. The appendix is not inflamed. There is no small bowel obstruction. IMPRESSION: 1. Extensive osseous and pulmonary metastatic disease as above. A clear primary lesion is not identified, but a left upper lobe 2.0 cm nodule with some pleural invasion is a consideration. 2. Moderate centrilobular emphysema. Changes of pulmonary arterial hypertension. 3. Moderate hiatal hernia. *One or more of the following individualized dose reduction techniques were utilized for this examination: 1. Automated exposure control. 2. Adjustment of the mA and/or kV according to patient size. 3. Use of iterative reconstruction technique. Electronically signed by: Emily Plata MD (09/23/2019 5:12 PM) [facility]
[2019-09-23 19:00] VITALS: BP 121/56
--- NOTE | 2019-09-23 20:20 | PDOC ---
GENERAL General: vss and afebrile. awake and alert. chest clear, heart regular, abdomen benign. diffuse osseous and pulmonary metastatic disease. will defer to oncology next step such as biopsy etc. VITAL SIGNS/I&O Vital Signs/I&O: Vital Signs Date Time Temp Pulse Resp B/P (MAP) Pulse Ox O2 Delivery O2 Flow Rate FiO2 09/23/19 15:00 97.9 69 18 141/60 (87) 91 Nasal Cannula 2.0 97.9 ALLERGIES Allergies: Allergies Coded Allergies Type Severity Reaction Last Updated Verified rice Allergy Severe 09/27/17 Yes MICHAEL NELSON MD Sep 23, 2019 20:20
[2019-09-23 23:00] VITALS: BP 136/75
[2019-09-24] MEDS: HYDROcodone/APAP 5/325MG 1 TAB TABLET PO PRN (02:20)
[2019-09-24 03:00] VITALS: BP 137/61
[2019-09-24 07:00] VITALS: BP 138/62
[2019-09-24] MEDS: LEVOTHYROXINE 50 MCG TABLET PO SCH (08:00)
[2019-09-24] MEDS: APIXABAN 5 MG TABLET. PO SCH (08:01)
[2019-09-24] MEDS: predniSONE 20 MG TABLET PO SCH (08:01)
[2019-09-24] MEDS: PANTOPRAZOLE 40 MG TABLET.DR. PO SCH (08:01)
--- NOTE | 2019-09-24 09:54 | PDOC ---
PROGRESS NOTES Subjective Subjective No new complaints. Objective Objective Vital Signs Date Time Temp Pulse Resp B/P (MAP) Pulse Ox O2 Delivery O2 Flow Rate FiO2 09/24/19 08:01 65 138/62 09/24/19 07:00 97.7 18 95 Nasal Cannula 3.0 97.7 Intake and Output 09/24/19 07:00 Intake Total 1010 ml Balance 1010 ml Intake Oral 1010 ml # Voids 4 # Bowel Movements 1 Physical Exam Physical Exam She is comfortable sitting in bed with head end of bed elevated. CT scan of chest and abdomen revealed extensive metastatic disease. She is getting up with roller walker. Assessment Assessment Problems Medical Problems: (1) Frequent falls Status: Acute (2) UTI (urinary tract infection) Status: Acute Plan Plan of Care Agree with present care plans. Comment Review of Relevant I have reviewed the following items sary (where applicable) has been applied. Labs Microbiology 09/18/19 Urine Culture - Final, Complete 09/18/19 Urine Culture Result 1 (MAGALI) - Final, Complete Medications Current Medications Albuterol/ Ipratropium (Duoneb) 3 ml 1X ONCE NEB Last administered on 09/18/19at 10:08; Start 09/18/19 at 10:30; Stop 09/18/19 at 10:31; Status DC Fentanyl Citrate (Fentanyl 2ml Vial) 50 mcg 1X ONCE IV Last administered on 09/18/19at 10:56; Start 09/18/19 at 10:30; Stop 09/18/19 at 10:31; Status DC Ondansetron HCl (Zofran) 4 mg 1X ONCE IV Last administered on 09/18/19at 10:56; Start 09/18/19 at 10:30; Stop 09/18/19 at 10:31; Status DC Ceftriaxone Sodium (Rocephin) 1 gm 1X ONCE IVP Last administered on 09/18/19at 12:09; Start 09/18/19 at 11:15; Stop 09/18/19 at 11:16; Status DC Fentanyl Citrate (Fentanyl 2ml Vial) 50 mcg 1X ONCE IV Last administered on 09/18/19at 12:09; Start 09/18/19 at 12:15; Stop 09/18/19 at 12:16; Status DC Fentanyl Citrate (Fentanyl 2ml Vial) 50 mcg 1X ONCE IVP Last administered on 09/18/19at 14:05; Start 09/18/19 at 14:00; Stop 09/18/19 at 14:01; Status DC Ceftriaxone Sodium (Rocephin) 1 gm Q24H IVP Last administered on 09/20/19at 10:13; Start 09/19/19 at 11:00; Stop 09/20/19 at 13:12; Status DC Apixaban (Eliquis) 5 mg BID PO Last administered on 09/24/19at 08:01; Start 09/18/19 at 21:00 Diltiazem HCl (Cardizem 24hr Cd) 180 mg DAILY PO Last administered on 09/24/19at 08:01; Start 09/19/19 at 09:00 Acetaminophen/ Hydrocodone Bitart (Lortab 5/325) 1 tab PRN Q8HRS PRN PO PAIN Last administered on 09/20/19at 03:15; Start 09/18/19 at 15:15; Stop 09/20/19 at 11:16; Status DC Levothyroxine Sodium (Synthroid) 50 mcg DAILYAC PO Last administered on 09/24/19at 08:00; Start 09/19/19 at 07:30 Pantoprazole Sodium (Protonix) 40 mg DAILYAC PO Last administered on 09/24/19at 08:01; Start 09/19/19 at 07:30 Prednisone (Prednisone) 20 mg DAILY PO Last administered on 09/24/19at 08:01; Start 09/19/19 at 09:00 Lidocaine (Lidoderm) 1 patch DAILY PRN TD back pain; Start 09/18/19 at 16:00; Stop 09/18/19 at 16:15; Status DC Miscellaneous (Lidoderm Patch Removal) 1 ea QHS PRN MC IF PATCH APPLIED; Start 09/18/19 at 16:15 Lidocaine (Lidoderm) 1 patch DAILY PRN TD back pain; Start 09/18/19 at 16:15 Lactobacillus Rhamnosus (Culturelle) 1 cap BID PO Last administered on 09/20/19at 07:31; Start 09/19/19 at 21:00; Stop 09/20/19 at 14:22; Status DC Info (Anti-Coagulation Monitoring By Pharmacy) 1 each PRN DAILY PRN MC SEE COMMENTS Last administered on 09/20/19at 14:20; Start 09/19/19 at 15:30 Diclofenac Sodium (Voltaren) 1 dawit PRN Q4HRS PRN TP Pain Last administered on 09/21/19at 03:22; Start 09/19/19 at 21:30 Acetaminophen/ Hydrocodone Bitart (Lortab 5/325) 1 tab PRN Q6HRS PRN PO PAIN Last administered on 09/24/19at 02:20; Start 09/20/19 at 11:30 Bisacodyl (Dulcolax Tab) 5 mg PRN DAILY PRN PO CONSTIPATION,1ST CHOICE Last administered on 09/21/19at 21:52; Start 09/20/19 at 13:15 Magnesium Citrate (Citroma) 150 ml PRN 1X PRN PO CONSTIPATION, 2ND CHOICE Last administered on 09/21/19at 09:30; Start 09/21/19 at 09:15 Iohexol (Omnipaque 240 Mg/ml) 30 ml 1X ONCE PO ; Start 09/23/19 at 10:30; Stop 09/23/19 at 10:31; Status DC Iohexol (Omnipaque 300 Mg/ml) 75 ml 1X ONCE IV ; Start 09/23/19 at 10:30; Stop 09/23/19 at 10:31; Status DC Info (CONTRAST GIVEN -- Rx MONITORING) 1 each PRN DAILY PRN MC SEE COMMENTS; Start 09/23/19 at 10:45; Stop 09/25/19 at 10:44 Active Scripts Active Polyethylene Glycol 3350 17 Gm Powd.pack 17 Gm PO BID Pantoprazole Sodium (Pantoprazole Sodium) 40 Mg Tablet.dr 40 Mg PO DAILYAC Hydrocodone-Apap 5-325 (Hydrocodone Bit/Acetaminophen) 1 Each Tablet 1 Tab PO PRN Q8HRS PRN Reported Levothyroxine Sodium 50 Mcg Tablet 50 Mcg PO DAILYAC Vitals/I & O Vital Sign - Last 24 Hours 09/23/19 09/23/19 09/23/19 09/23/19 11:00 15:00 19:00 20:00 Temp 97.5 97.9 97.2 97.5 97.9 97.2 Pulse 76 69 71 Resp 18 18 22 B/P (MAP) 133/53 (79) 141/60 (87) 121/56 (77) Pulse Ox 94 91 95 O2 Delivery Nasal Cannula Nasal Cannula Nasal Cannula Nasal Cannula O2 Flow Rate 2.0 2.0 2.0 2.0 09/23/19 09/23/19 09/23/19 09/24/19 20:27 21:27 23:00 02:20 Temp 97.8 97.8 Pulse 69 Resp 20 B/P (MAP) 136/75 (95) Pulse Ox 93 93 O2 Delivery Nasal Cannula Nasal Cannula Nasal Cannula Nasal Cannula O2 Flow Rate 2.0 2.0 2.0 09/24/19 09/24/19 09/24/19 09/24/19 03:00 03:25 07:00 08:01 Temp 97.7 97.7 Pulse 60 65 65 Resp 20 18 B/P (MAP) 137/61 (86) 138/62 (87) 138/62 Pulse Ox 95 95 O2 Delivery Nasal Cannula Room Air Nasal Cannula O2 Flow Rate 2.0 3.0 Intake and Output 09/23/19 09/23/19 09/24/19 15:00 23:00 07:00 Intake Total 460 ml 450 ml 100 ml Balance 460 ml 450 ml 100 ml ADÁN ESQUIVEL MD Sep 24, 2019 09:54
[2019-09-24 11:00] VITALS: BP 133/66
--- NOTE | 2019-09-24 12:52 | NUR ---
SW following. Discussed with RN, Dr. Simon wanting to discharge pt to [facility] today. Pt having an MRI at about 1300. RN having to complete med rec due to discharge paperwork not in pt chart. SW to fax to [place]. Pt will be collected at around 1500 to go to [place]. SW will continue to follow.
[2019-09-24] MEDS: ANTI-COAG MONITOR BY PHARMACY. MC PRN (13:35)
[2019-09-24] MEDS ORDERED: GADOTERATE 5 MMOL/10ML VIAL. IVP ONE (14:45)
--- NOTE | 2019-09-24 15:41 | NUR ---
Discharge Note: PT DISCHARGED TO [facility]. PT LEFT FACILTY VIA EMS TRANSPORT AT 1542. PT STABLE AND ALERT UPON DISCHARGE. PT PIV REMOVED FROM R FA AND L FA WITHOUT COMPLICATIONS, BANDAGE APPLIED. REPORT CALLED TO [facility] NURSE HATTIE. EDUCATED ABOUT DISCHARGE MEDICATIONS, DISCHARGE INSTRUCTIONS, AND FOLLOW-UP INSTRUCTIONS. NO CONCERNS VOICED AT THIS TIME. PT LEFT WITH ALL PERSONAL BELONGINGS IN ROOM. SON NOTIFIED OF TRANSFER. BARTOLO MADISON Discharge instructions and discharge home medications reviewed with Patient and a copy given. All questions have been answered and understanding verbalized.
--- NOTE | 2019-09-24 16:29 | RAD ---
EXAMINATION: Magnetic resonance imaging (MRI) of the thoracic and lumbar spine with and without contrast 09/24/2019 9:19 AM HISTORY: Thoracic and left upper extremity pain. TECHNIQUE: Multiplanar multi-weighted MRI of the thoracic and lumbar spine was performed with and without intravenous contrast using the standard thoracic and lumbar spine protocol. Contrast information: Gadolinium based contrast. COMPARISON: None available. FINDINGS: Thoracic spine: There is dextroconvex scoliosis of the thoracic spine. Intrinsic T1 signal hypointensity is involving multiple thoracic vertebral with involvement of the entire vertebra at T4, T5, T6, T7, T9, T10 and T12. There is involvement of the left T1 vertebral body without definite involvement posterior elements at this level. There may be involvement of the left ventral epidural space without definite compression of the thecal sac. There is involvement of the right C2 vertebral body without extraosseous involvement. At T4, there is involvement of the vertebral body with extraosseous involvement and involvement of the anterior epidural space with mild compression of the thecal sac and approximately 180 degrees involvement of the thecal sac. Similar findings are identified at the T5 vertebral level. There is indentation the left ventral thecal sac without significant cord compression. At T9, there is minimal extraosseous involvement along the posterior aspect of the vertebral body with minimal indentation the ventral thecal sac. At T11-T12, there is involvement of the left pedicle with extraosseous involvement extends into the left lateral epidural space with minimal mass effect on the left lateral thecal sac and no definite cord compression. At T12-L1, there is circumferential involvement of tumor within the epidural space with mild mass effect on the thecal sac and no definite cord compression. There is involvement of the left L1 pedicle with near complete circumferential involvement of the thecal sac at this level with mild spinal canal stenosis and no definite cord compression or cord signal alteration. There is a 17 x 13 mm mass in the super segment left lower lobe which may represent primary lung malignancy versus metastatic disease. Trace bilateral pleural effusions are present. Thoracic aorta is normal in course and caliber. Evaluation for mediastinal lymphadenopathy is limited. Small hiatal hernia. Lumbar spine: Alignment lumbar spine is normal. There is inferior endplate compression deformity involving L3 with mild edema suggestive of pathologic fracture given marrow placement. There is diffuse marrow replacement involving the L3 vertebral body with extension to the ventral epidural space soft tissue abnormality which results in mild spinal canal stenosis and left lateral recess stenosis. There is minimal retropulsion of the head. Plate. There is diffuse involvement of L4 with osseous metastatic disease with involvement of the posterior epidural space with narrowing of the lateral recesses bilaterally, left greater than right. There is mild facet arthropathy. Mild spinal canal stenosis. At L5, there is marrow involvement with minimal right ventral epidural involvement which may affect the traversing right S1 nerve. Moderate facet arthropathy without significant spinal canal stenosis or neuroforaminal stenosis. 2 focal osseous lesions are identified involving the sacrum with likely epidural involvement involving the right S2 level. Sacral pathologic fracture is not definitively visualized. Conus medullaris terminates at L1-L2. Distal spinal cord signal intensity is normal in all sequences. Ill-defined mass is noted along the inferior lateral right kidney measuring 2.0 x 1.6 cm. Further characterization is recommended with CT renal mass protocol. IMPRESSION: 1. 17 x 13 mm mass in the super segment left lower lobe may represent primary lung malignancy versus metastatic disease. PET/CT may be of benefit. 2. Mass along the inferior lateral right kidney measures 2.0 x 1.[address] cm. Renal mass protocol CT may be of benefit for further evaluation. 3. Diffuse osseous metastatic disease with areas of epidural involvement, as described in detail above. There is circumferential epidural involvement at the T12 vertebral level with mass effect on the thecal sac. No definite cord compression. Electronically signed by: Nicol Reyes MD (09/24/2019 4:26 PM) [id number]
--- NOTE | 2019-09-24 21:26 | DS ---
DATE OF DISCHARGE: 09/24/2019 PRIMARY DIAGNOSIS: Fall with closed head injury. ADDITIONAL DIAGNOSES: Weakness, metastatic cancer of uncertain primary, COPD, hypothyroidism, atherosclerotic heart disease. CHIEF COMPLAINT AND HISTORY OF PRESENT ILLNESS: This 78-year-old white female presented after a fall at home, striking her head. She was weak. In the Emergency Room, felt to have a urinary tract infection on the left with intractable left shoulder and arm pain that has been felt over the last month in my office to be due to a possible cervical radiculopathy. She has been taking prednisone for the same at home with relief of the pain, but admits using it as p.r.n. pain pill instead of as directed. SUMMARY OF STAY: The patient was admitted. Dr. Hernandez was consulted. He felt she had a probable radicular type pain in addition. She eventually had a scanning of her cervical spine showing what appeared to be osseous metastatic disease. This was confirmed on lumbar spine and thoracic spine MRIs. She was seemed to have sternal metastatic disease. In addition, she had a 17 x 13 mm mass superior segment, left upper lobe, felt to possibly represent a primary lung malignancy versus metastatic disease. She had areas of epidural involvement of the tumor as described in the x-ray reports. When confronted with this, the patient stated that she did not want biopsies or any further treatment, but [facility]. I discussed with her in detail hospice, which she refused at the time of discharge. DISPOSITION: The patient is discharged to home at [place] for custodial prior to probably a long-term stay as [facility] patient. Activity as tolerated with therapy to evaluate. DISCHARGE MEDICATIONS: Listed on the med rec and have been addressed. MICHAEL NELSON MD DR: CYNTHIA/yue JOB#: [id number] / [id number]
== END 2019-09-24 15:50 | DRG 690 ==
LOC: ER 09:20 → 5 SOUTH 12:30
PROVIDERS: ADMIT Family Medicine; ATTEND Family Medicine
DX: N39.0 Urinary tract infection, site not specified (principal); C79.51 Secondary malignant neoplasm of bone; G89.3 Neoplasm related pain (acute) (chronic); M47.22 Other spondylosis with radiculopathy, cervical region; E03.9 Hypothyroidism, unspecified; F17.200 Nicotine dependence, unspecified, uncomplicated; G89.29 Other chronic pain; I25.10 Atherosclerotic heart disease of native coronary artery without angina pectoris; I25.2 Old myocardial infarction; I48.91 Unspecified atrial fibrillation; J44.9 Chronic obstructive pulmonary disease, unspecified; K21.9 Gastro-esophageal reflux disease without esophagitis; M19.90 Unspecified osteoarthritis, unspecified site; M51.36 Other intervertebral disc degeneration, lumbar region; R29.6 Repeated falls; Z82.5 Family history of asthma and other chronic lower respiratory diseases; Z86.74 Personal history of sudden cardiac arrest; Z90.710 Acquired absence of both cervix and uterus; Z91.19 Patient's noncompliance with other medical treatment and regimen; Z99.81 Dependence on supplemental oxygen; F41.9 Anxiety disorder, unspecified; W18.39XA Other fall on same level, initial encounter; Y93.89 Activity, other specified; Y92.89 Other specified places as the place of occurrence of the external cause; Y99.8 Other external cause status
CPT/HCPCS: 36415; 70450; 70486; 71045; 71260; 72141; 72157; 72158; 74177; 80053; 81001; 83605; 83880; 84484; 85025; 85610; 85730; 87086; 93005; 96374; 96375; 96376; A9575; J0696; J2405; J3010; J7512; J7620; P9612; 97110; 97116; 97530; 97535; 99285-25; G0378

== ENCOUNTER 2019-10-06 20:59 | Emergency (ER) | payer MEDICARE ==
[~2019-10-06] VITALS: Ht 160 cm; Wt 54.4 kg
[~2019-10-06 20:59] MED LIST changes: +APIX5TAB PO; +DILT180C29 PO; +LEVO50TA5 PO
[2019-10-06 21:33] LABS: BILIRUBIN,URINE NEGATIVE (NEG); CLARITY,URINE CLEAR; COLOR,URINE YELLOW; NITRITE,URINE NEGATIVE (NEG); PROTEIN,URINE NEGATIVE (NEG-TRACE)
[2019-10-06 21:44] LABS: BACTERIA,URINE MODERATE /HPF (0-FEW); SQUAMOUS EPITHELIAL CELL,UR FEW /LPF
[2019-10-06 22:05] LABS: BASO # 0.2 x10^3/uL (0.0-0.2); BASO % 2 % (0-3); EOS # 0.2 x10^3/uL (0.0-0.7); EOS % 3 % (0-3); HEMATOCRIT 36.5 % (36.0-47.0); HEMOGLOBIN 12.1 g/dL (12.0-15.5); LYMPH # 1.6 x10^3/uL (1.0-4.8); LYMPH % 17 % (24-48); MEAN CORPUSCULAR HEMOGLOBIN 30 pg (25-35); MEAN CORPUSCULAR HGB CONC 33 g/dL (31-37); MEAN CORPUSCULAR VOLUME 89 fL (79-100); MONO # 0.8 x10^3/uL (0.0-1.1); MONO % 9 % (0-9); NEUT # 6.4 x10^3/uL (1.8-7.7); NEUT % 70 % (31-73); PLATELET COUNT 497 x10^3/uL (140-400); RED BLOOD COUNT 4.08 x10^6/uL (3.50-5.40); RED CELL DISTRIBUTION WIDTH 17.7 % (11.5-14.5); WHITE BLOOD COUNT 9.2 x10^3/uL (4.0-11.0)
[2019-10-06 23:15] LABS: CREATININE 0.7 mg/dL (0.6-1.0); GFR 81.1; POTASSIUM 3.7 mmol/L (3.5-5.1)
[2019-10-06 23:21] LABS: ALBUMIN 2.7 g/dL (3.4-5.0); ALBUMIN/GLOBULIN RATIO 0.6 (1.0-1.7); MAGNESIUM 1.9 mg/dL (1.8-2.4); TOTAL BILIRUBIN 0.3 mg/dL (0.2-1.0)
[2019-10-06] MEDS ORDERED: ORPHENADRINE CITRATE 60 MG/2 ML VIAL. IV ONE (23:30)
[2019-10-06] MEDS ORDERED: KETOROLAC 15 MG/ML VIAL. IVP ONE (23:30)
[2019-10-07 00:33] VITALS: BP 159/70
--- NOTE | 2019-10-07 04:49 | PHYS DOC ---
Past Medical History Past Medical History: Arthritis, COPD, GERD, Hypothyroid, [place] Additional Past Medical Histor: on home oxygen (non compliant), Cardiac Arrest Past Surgical History: , Hysterectomy, Other Additional Past Surgical Histo: R elbow Alcohol Use: None Drug Use: None Adult General Chief Complaint Chief Complaint: GENERALIZED BODY ACHES HPI HPI Patient is a 79 year old female long term patient who presents with chronic pain poorly controlled with current pain medication regimen. Patient receives OxyContin twice daily and hydrocodone every 6 hours as needed for breakthrough pain. She states after taking Oxycontin this evening her pain was poorly controlled. Diffuse diffuse chest shoulder neck and back pain. Denies trauma or repetitive strain injury. Fevers chills nausea vomiting or sweats. No urinary frequency urgency or dysuria. No other acute symptoms or complaints. Patient contacted 911 from long term [] Review of Systems Review of Systems ROS as per HPI All other systems were reviewed and found to be within normal limits, except as documented in this note. Current Medications Current Medications Current Medications Medications (Trade) Dose Ordered Sig/Edith Start Time Stop Time Status Last Admin Dose Admin Ketorolac Tromethamine (Toradol 15mg Vial) 15 mg 1X ONCE 10/06/19 23:30 10/06/19 23:31 DC 10/06/19 23:33 15 MG Orphenadrine Citrate (Norflex) 30 mg 1X ONCE 10/06/19 23:30 10/06/19 23:31 DC 10/06/19 23:32 30 MG Allergies Allergies Allergies Coded Allergies Type Severity Reaction Last Updated Verified rice Allergy Severe 09/27/17 Yes Physical Exam Physical Exam Constitutional: Well developed, well nourished, no acute distress, non-toxic appearance. [] HENT: Normocephalic, atraumatic, bilateral external ears normal, oropharynx moist, no oral exudates, nose normal. [] Eyes: PERRLA, EOMI, conjunctiva normal, no discharge. [] Neck: Normal range of motion, no tenderness, supple, no stridor. [] Cardiovascular:Heart rate regular rhythm, no murmur [] Lungs & Thorax: Bilateral breath sounds clear to auscultation [] Abdomen: Bowel sounds normal, soft, no tenderness. [] Skin: Warm, dry, no erythema, no rash. [] Back: No tenderness, no CVA tenderness. [] Extremities: No tenderness, no cyanosis. [] Neurologic: Alert and oriented X 3, normal motor function, normal sensory function, no focal deficits noted. [] Psychologic: Affect normal, judgement normal, mood normal. [] Current Patient Data Vital Signs Vital Signs Date Time Temp Pulse Resp B/P (MAP) Pulse Ox O2 Delivery O2 Flow Rate FiO2 10/07/19 00:33 68 159/70 (99) 92 Nasal Cannula 2.0 10/06/19 21:15 97.7 22 97.7 Lab Values Laboratory Tests Test 10/06/19 21:20 10/06/19 21:55 10/06/19 22:59 Urine Collection Type Void Urine Color Yellow Urine Clarity Clear Urine pH 7.0 Urine Specific Coward 1.015 Urine Protein Negative mg/dL (NEG-TRACE) Urine Glucose (UA) Negative mg/dL (NEG) Urine Ketones (Stick) Negative mg/dL (NEG) Urine Blood Negative (NEG) Urine Nitrite Negative (NEG) Urine Bilirubin Negative (NEG) Urine Urobilinogen Dipstick 1.0 mg/dL (0.2 mg/dL) Urine Leukocyte Esterase Small (NEG) Urine RBC 6-10 /HPF (0-2) Urine WBC 11-20 /HPF (0-4) Urine Squamous Epithelial Cells Few /LPF Urine Bacteria Moderate /HPF (0-FEW) White Blood Count 9.2 x10^3/uL (4.0-11.0) Red Blood Count 4.08 x10^6/uL (3.50-5.40) Hemoglobin 12.1 g/dL (12.0-15.5) Hematocrit 36.5 % (36.0-47.0) Mean Corpuscular Volume 89 fL (79-100) Mean Corpuscular Hemoglobin 30 pg (25-35) Mean Corpuscular Hemoglobin Concent 33 g/dL (31-37) Red Cell Distribution Width 17.7 % (11.5-14.5) H Platelet Count 497 x10^3/uL (140-400) H Neutrophils (%) (Auto) 70 % (31-73) Lymphocytes (%) (Auto) 17 % (24-48) L Monocytes (%) (Auto) 9 % (0-9) Eosinophils (%) (Auto) 3 % (0-3) Basophils (%) (Auto) 2 % (0-3) Neutrophils # (Auto) 6.4 x10^3/uL (1.8-7.7) Lymphocytes # (Auto) 1.6 x10^3/uL (1.0-4.8) Monocytes # (Auto) 0.8 x10^3/uL (0.0-1.1) Eosinophils # (Auto) 0.2 x10^3/uL (0.0-0.7) Basophils # (Auto) 0.2 x10^3/uL (0.0-0.2) Sodium Level 137 mmol/L (136-145) Potassium Level 3.7 mmol/L (3.5-5.1) Chloride Level 102 mmol/L (98-107) Carbon Dioxide Level 27 mmol/L (21-32) Anion Gap 8 (6-14) Blood Urea Nitrogen 16 mg/dL (7-20) Creatinine 0.7 mg/dL (0.6-1.0) Estimated GFR (Cockcroft-Gault) 81.1 BUN/Creatinine Ratio 23 (6-20) H Glucose Level 138 mg/dL (70-99) H Calcium Level 9.0 mg/dL (8.5-10.1) Magnesium Level 1.9 mg/dL (1.8-2.4) Total Bilirubin 0.3 mg/dL (0.2-1.0) Aspartate Amino Transferase (AST) 28 U/L (15-37) Alanine Aminotransferase (ALT) 16 U/L (14-59) Alkaline Phosphatase 89 U/L (46-116) Total Protein 7.0 g/dL (6.4-8.2) Albumin 2.7 g/dL (3.4-5.0) L Albumin/Globulin Ratio 0.6 (1.0-1.7) L Thyroid Stimulating Hormone (TSH) 7.893 uIU/mL (0.358-3.74) H Laboratory Tests 10/06/19 21:55 Laboratory Tests 10/06/19 22:59 EKG EKG [] Radiology/Procedures Radiology/Procedures [] Course & Med Decision Making Course & Med Decision Making Pertinent Labs and Imaging studies reviewed. (See chart for details) [Labs, reviewed. No obvious cause contributing to her symptoms.. Nonnarcotic pain medications given the ED. Will defer further pain management to PCP.] Lucio Disclaimer Lucio Disclaimer This electronic medical record was generated, in whole or in part, using a voice recognition dictation system. Departure Departure Impression: Primary Impression: Chronic pain syndrome Disposition: 01 HOME, SELF-CARE Condition: GOOD Patient Instructions: Chronic Back Pain Additional Instructions: Please follow up with your primary care physician for further management of your chronic pain. DOROTHY WALTON DO Oct 07, 2019 04:49
--- NOTE | 2019-10-07 06:14 | RAD ---
EXAM: AP View of the chest DATE: 10/06/2019 9:24 PM INDICATION: Chest pain COMPARISON: 10/18/2019, 09/25/2017 FINDINGS: Stable marked cardiomegaly. Compared to 09/18/2019 there is now a small to moderate left pleural effusion with associated left lung base airspace opacities. Patchy opacities right lung base. Chronic architectural changes of the lungs bilaterally. Associated interstitial prominence. No pneumothorax. IMPRESSION: Cardiomegaly with left pleural effusion and associated interstitial prominence a few pulmonary edema. In addition, given airspace opacity at the left lung base, atelectasis or consolidation is also suspected. Electronically signed by: Dung Barr MD (10/07/2019 6:11 AM) [facility]
== END 2019-10-07 00:24 | disposition home or self-care (01) ==
LOC: ER 20:59
DX: G89.4 Chronic pain syndrome (principal); R07.89 Other chest pain; M54.2 Cervicalgia; M25.519 Pain in unspecified shoulder; K21.9 Gastro-esophageal reflux disease without esophagitis; J44.9 Chronic obstructive pulmonary disease, unspecified; I25.2 Old myocardial infarction; Z90.710 Acquired absence of both cervix and uterus; Z91.018 Allergy to other foods
CPT/HCPCS: 36415; 71045; 80053; 81001; 83735; 84443; 85025; 87086; 96374; 96375; 99285; J1885; J2360